=== PATIENT | female | born 1990 | race Caucasian/White ===

== ENCOUNTER 2016-10-03 08:17 | Emergency (ER) | payer SELFPAY ==
--- NOTE | 2016-10-03 08:38 | ED ---
Abdominal Pain HPI - General Chief Complaint: Abdominal Pain Stated Complaint: Pelvic pain Time Seen by Provider: 10/03/16 08:31 Source: patient, RN notes reviewed Mode of arrival: ambulatory Limitations: no limitations - History of Present Illness Initial Comments: 26-year-old female presents emergency Department chief complaint lower abdominal pain. Patient states that has been on and off for last week but states not improving. Patient states that she's had ovarian cysts in the past and feels somewhat. Patient states there is a chance . Though she has not taken a test. 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 Patient states that she had a menstrual cycle 2 weeks after though she has not had a menstrual cycle after. She states that she 's had some mild spotting over this last week and states when the bleeding is present she does have some cramping. Patient denies any vaginal discharge and denies any concerns for STDs. Patient states that she is 1 different partner with her . Patient denies nausea vomiting diarrhea constipation. She states all her pain is in the pelvic region. - Related Data Home Medications Medication Instructions Recorded Confirmed No Known Home Medications [No 10/03/16 10/03/16 Known Home Medications] Allergies Allergy/AdvReac Type Severity Reaction Status Date / Time codeine AdvReac Nausea Verified 10/03/16 08:25 Review of Systems ROS Statement: Those systems with pertinent positive or pertinent negative responses have been documented in the HPI. ROS Other: All systems not noted in ROS Statement are negative. Past Medical History Past Medical History: No Reported History History of Any Multi-Drug Resistant Organisms: None Reported Past Surgical History: Section Past Psychological History: No Psychological Hx Reported Smoking Status: Former smoker Past Alcohol Use History: None Reported Past Drug Use History: None Reported General Exam Limitations: no limitations General appearance: alert, in no apparent distress Respiratory exam: Present: normal lung sounds bilaterally. Absent: respiratory distress, wheezes, rales, rhonchi, stridor Cardiovascular Exam: Present: regular rate, normal rhythm, normal heart sounds. Absent: systolic murmur, diastolic murmur, rubs, gallop, clicks GI/Abdominal exam: Present: soft, tenderness (Mild/moderate suprapubic tenderness), normal bowel sounds. Absent: distended, guarding, rebound, rigid Back exam: Absent: CVA tenderness (R), CVA tenderness (L) Neurological exam: Present: alert Skin exam: Present: warm, dry, intact, normal color. Absent: rash Course Vital Signs 10/03/16 10/03/16 08:21 08:48 Temperature 98.2 F Pulse Rate 87 82 Respiratory 18 14 Rate Blood Pressure 128/73 118/63 O2 Sat by Pulse 97 96 Oximetry Medical Decision Making - Medical Decision Making 26-year-old female presented for pelvic pain. Patient has ovarian cyst noted on ultrasound. Patient's lab work, urinalysis within normal limits. Patient does not want a pelvic exam is time she states she has no concerns for PID. Patient will be discharged at this time with follow-up with [facility]. - Lab Data Result diagrams: 10/03/16 08:48 10/03/16 08:48 Lab Results 10/03/16 10/03/16 10/03/16 Range/Units 08:48 08:48 08:48 WBC 6.3 (3.8-10.6) k/uL RBC 4.79 (3.80-5.40) m/uL Hgb 13.9 (11.4-16.0) gm/dL Hct 41.8 (34.0-46.0) % MCV 87.4 (80.0-100.0) fL MCH 29.1 (25.0-35.0) pg MCHC 33.3 (31.0-37.0) g/dL RDW 13.6 (11.5-15.5) % Plt Count 224 (150-450) k/uL Neutrophils % 57 % Lymphocytes % 33 % Monocytes % 6 % Eosinophils % 2 % Basophils % 1 % Neutrophils # 3.6 (1.3-7.7) k/uL Lymphocytes # 2.1 (1.0-4.8) k/uL Monocytes # 0.4 (0-1.0) k/uL Eosinophils # 0.1 (0-0.7) k/uL Basophils # 0.0 (0-0.2) k/uL Sodium 141 (137-145) mmol/L Potassium 4.3 (3.5-5.1) mmol/L Chloride 107 (98-107) mmol/L Carbon Dioxide 21 L (22-30) mmol/L Anion Gap 13 mmol/L BUN 17 (7-17) mg/dL Creatinine 0.59 (0.52-1.04) mg/dL Est GFR (MDRD) Af Amer >60 (>60 ml/min/1.73 sqM) Est GFR (MDRD) Non-Af >60 (>60 ml/min/1.73 sqM) Glucose 81 (74-99) mg/dL Calcium 9.3 (8.4-10.2) mg/dL Total Bilirubin 0.6 (0.2-1.3) mg/dL AST 23 (14-36) U/L ALT 37 (9-52) U/L Alkaline Phosphatase 63 (38-126) U/L Total Protein 7.2 (6.3-8.2) g/dL Albumin 4.2 (3.5-5.0) g/dL Urine Color Urine Appearance (Clear) Urine pH (5.0-8.0) Ur Specific [place] (1.001-1.035) Urine Protein (Negative) Urine Glucose (UA) (Negative) Urine Ketones (Negative) Urine Blood (Negative) Urine Nitrate (Negative) Urine Bilirubin (Negative) Urine Urobilinogen (<2.0) mg/dL Ur Leukocyte Esterase (Negative) Urine HCG, Qual Not Detected (Not Detectd) 10/03/16 Range/Units 08:48 WBC (3.8-10.6) k/uL RBC (3.80-5.40) m/uL Hgb (11.4-16.0) gm/dL Hct (34.0-46.0) % MCV (80.0-100.0) fL MCH (25.0-35.0) pg MCHC (31.0-37.0) g/dL RDW (11.5-15.5) % Plt Count (150-450) k/uL Neutrophils % % Lymphocytes % % Monocytes % % Eosinophils % % Basophils % % Neutrophils # (1.3-7.7) k/uL Lymphocytes # (1.0-4.8) k/uL Monocytes # (0-1.0) k/uL Eosinophils # (0-0.7) k/uL Basophils # (0-0.2) k/uL Sodium (137-145) mmol/L Potassium (3.5-5.1) mmol/L Chloride (98-107) mmol/L Carbon Dioxide (22-30) mmol/L Anion Gap mmol/L BUN (7-17) mg/dL Creatinine (0.52-1.04) mg/dL Est GFR (MDRD) Af Amer (>60 ml/min/1.73 sqM) Est GFR (MDRD) Non-Af (>60 ml/min/1.73 sqM) Glucose (74-99) mg/dL Calcium (8.4-10.2) mg/dL Total Bilirubin (0.2-1.3) mg/dL AST (14-36) U/L ALT (9-52) U/L Alkaline Phosphatase (38-126) U/L Total Protein (6.3-8.2) g/dL Albumin (3.5-5.0) g/dL Urine Color Yellow Urine Appearance Clear (Clear) Urine pH 5.0 (5.0-8.0) Ur Specific [place] 1.015 (1.001-1.035) Urine Protein Negative (Negative) Urine Glucose (UA) Negative (Negative) Urine Ketones Negative (Negative) Urine Blood Negative (Negative) Urine Nitrate Negative (Negative) Urine Bilirubin Negative (Negative) Urine Urobilinogen <2.0 (<2.0) mg/dL Ur Leukocyte Esterase Negative (Negative) Urine HCG, Qual (Not Detectd) Disposition Clinical Impression: Ovarian cyst, Abdominal pain Disposition: HOME SELF-CARE Condition: Stable Instructions: Ovarian Cyst (ED) Additional Instructions: Please return to the Emergency Department if symptoms worsen or any other concerns. Referrals: rAmaan Chaney MD [Primary Care Provider] - 1-2 days Time of Disposition: 10:18
[2016-10-03 09:09] LABS: Basophils % (A) 1 %; CH 29.4; CHCM 33.7; Eosinophils # (A) 0.1 k/uL (0-0.7); Eosinophils % (A) 2 %; HCT 41.8 % (34.0-46.0); HDW 2.17; HGB 13.9 gm/dL (11.4-16.0); Luc # (Auto) 0.12; Luc % (Auto) 2; Lymphocytes # (A) 2.1 k/uL (1.0-4.8); Lymphocytes % (A) 33 %; MCH 29.1 pg (25.0-35.0); MCHC 33.3 g/dL (31.0-37.0); MCV 87.4 fL (80.0-100.0); Mean Platelet Volume 8.2; Monocytes # (A) 0.4 k/uL (0-1.0); Monocytes % (A) 6 %; Neutrophils # (A) 3.6 k/uL (1.3-7.7); Neutrophils % (A) 57 %; RBC 4.79 m/uL (3.80-5.40); RDW 13.6 % (11.5-15.5); WBC 6.3 k/uL (3.8-10.6); WBC (Perox) 6.49
[2016-10-03 09:17] LABS: ALT 37 U/L (9-52); AST 23 U/L (14-36); Alkaline Phosphatase 63 U/L (38-126); Anion Gap 13 mmol/L; Blood Urea Nitrogen 17 mg/dL (7-17); Calcium 9.3 mg/dL (8.4-10.2); Carbon Dioxide 21 mmol/L (22-30); Chloride 107 mmol/L (98-107); Glucose 81 mg/dL (74-99); Non-African American GFR(MDRD) >60 (>60 ml/min/1.73 sqM); Potassium 4.3 mmol/L (3.5-5.1); Sodium 141 mmol/L (137-145); Total Bilirubin 0.6 mg/dL (0.2-1.3); Total Protein 7.2 g/dL (6.3-8.2)
--- NOTE | 2016-10-03 09:35 | US ---
EXAMINATION TYPE: US transvag DATE OF EXAM: 10/03/2016 9:17 AM COMPARISON: NONE CLINICAL HISTORY: Pain X 1 WEEK, IRREGULAR BLEEDING SINCE LMP IN APRIL 2016. TECHNIQUE: TV Date of LMP: APR 2016 EXAM MEASUREMENTS: Uterus: 6.9 x 4.7 x 5.2cm Endometrial Stripe: 1.1cm Right Ovary: 4.8 x 4.9 x 3.7cm Left Ovary: 2.9 x 1.6 x 1.9cm TECHNOLOGIST IMPRESSION: 1. Uterus: Retroverted wnl 2. Endometrium: wnl 3. Right Ovary: 3.1cm simple cyst seen 4. Left Ovary: multiple follicles under 1cm Spectral, color and waveform doppler imaging shows good arterial and venous flow within the ovaries ; there is no evidence for ovarian torsion. 5. Bilateral Adnexa: mild free fluid around rt ovary 6. Posterior cul-de-sac: wnl Grayscale, color Doppler, spectral Doppler imaging performed of the ovaries IMPRESSION: No evident ovarian torsion. Small amount of free fluid present adjacent to the right ovar y. Endometrial stripe thickness is described, correlate for appropriate base of patient's follicular cycle. Right ovarian cyst, follow-up as indicated.
[2016-10-03 10:03] LABS: Appearance,Urine Clear (Clear); Bilirubin,Urine Negative (Negative); Glucose,Urine (UA) Negative (Negative); Ketones,Urine Negative (Negative); Leukocyte Esterase,Urine Negative (Negative); Nitrite,Urine Negative (Negative); Protein,Urine Negative (Negative); Specific Gravity,Urine 1.015 (1.001-1.035); UA Billing (MACRO vs. MICRO) CHEM; Urobilinogen,Urine <2.0 mg/dL (<2.0)
[2016-10-03 10:34] VITALS: BP 120/70; PULSE 78; RESP 16; TEMP 97.8
== END 2016-10-03 10:33 | disposition home or self-care (01) ==
LOC: EC 08:17
DX: N83.201 Unspecified ovarian cyst, right side (principal); Z88.5 Allergy status to narcotic agent; Z87.891 Personal history of nicotine dependence
CPT/HCPCS: 36415; 76830; 80053; 81003; 81025; 85025; 93975; 99284

== ENCOUNTER 2020-12-12 12:41 | Emergency (ER) | payer OTHER ==
[2020-12-12 14:07] LABS: Basophils % (A) 0 %; Eosinophils % (A) 1 %; HCT 40.9 % (34.0-46.0); HGB 14.1 gm/dL (11.4-16.0); Lymphocytes # (A) 1.1 k/uL (1.0-4.8); Lymphocytes % (A) 24 %; MCH 31.1 pg (25.0-35.0); MCHC 34.5 g/dL (31.0-37.0); Mean Platelet Volume 7.9; Monocytes # (A) 0.4 k/uL (0-1.0); Monocytes % (A) 8 %; Neutrophils % (A) 66 %; Platelet Count 171 k/uL (150-450); RBC 4.55 m/uL (3.80-5.40); RDW 11.9 % (11.5-15.5); WBC 4.5 k/uL (3.8-10.6)
[2020-12-12 14:18] LABS: ALT 16 U/L (4-34); AST 33 U/L (14-36); African American GFR (CKD) >90 (>60 ml/min/1.73 sqM); Albumin 4.2 g/dL (3.5-5.0); Alkaline Phosphatase 53 U/L (38-126); Anion Gap 9 mmol/L; Blood Urea Nitrogen 11 mg/dL (7-17); Calcium 8.8 mg/dL (8.4-10.2); Carbon Dioxide 26 mmol/L (22-30); Chloride 103 mmol/L (98-107); Glucose 95 mg/dL (74-99); Non-African American GFR(CKD) >90 (>60 ml/min/1.73 sqM); Potassium 4.4 mmol/L (3.5-5.1); Sodium 138 mmol/L (137-145); Total Bilirubin 0.4 mg/dL (0.2-1.3)
[2020-12-12] MEDS ORDERED: ACETAMINOPHEN TAB 500 MG TAB PO STA (14:58)
[2020-12-12] MEDS ORDERED: ONDANSETRON 4 MG/2 ML VIAL IVP STA (14:58)
[2020-12-12] MEDS ORDERED: SODIUM CHLORIDE 0.9% 1,000 ML IV STA (14:58)
[2020-12-12 15:16] VITALS: RESP 18
--- NOTE | 2020-12-12 15:32 | XR ---
EXAMINATION TYPE: XR chest 2V DATE OF EXAM: 12/12/2020 COMPARISON: NONE HISTORY: Chest pain TECHNIQUE: Frontal and lateral views of the chest are obtained. FINDINGS: There is no focal air space opacity. No evidence for pneumothorax. No pleural effusion. The cardiac silhouette size is within normal limits. The osseous structures are grossly intact. IMPRESSION: 1. No acute cardiopulmonary process.
--- NOTE | 2020-12-12 16:17 | ED ---
URI HPI - General Chief Complaint: Upper Respiratory Infection Stated Complaint: Dizziness,Vomiting, Fever,COVID + Time Seen by Provider: 12/12/20 14:54 Source: patient Mode of arrival: ambulatory Limitations: no limitations - History of Present Illness Initial Comments: Patient is a 30-year-old female presenting to the emergency department for complaints of fatigue, nausea and vomiting over the past week. Patient states she tested positive for Covid on 12/07/2020, symptoms began a few days before that. She states she has not had many respiratory symptoms but mostly the nausea vomiting and fatigue. Her appetite has been very low. She has been having fevers, she's been taking Tylenol and Motrin which has been helping. She denies any chest pain or shortness of breath, she admits to some occasional abdominal cramping but no specific area of abdominal pain. She denies being . She has no further complaints at this time. Upon arrival to the ER, her temperature is 99.8, pulse is 105, 96% on room air. - Related Data Previous Rx's Medication Instructions Recorded Ondansetron Odt [Zofran Odt] 4 mg PO Q8HR PRN #10 tab 12/12/20 Allergies Allergy/AdvReac Type Severity Reaction Status Date / Time codeine AdvReac Nausea Verified 12/12/20 13:44 Review of Systems ROS Statement: Those systems with pertinent positive or pertinent negative responses have been documented in the HPI. ROS Other: All systems not noted in ROS Statement are negative. Past Medical History Past Medical History: No Reported History History of Any Multi-Drug Resistant Organisms: None Reported Past Surgical History: Section Past Psychological History: No Psychological Hx Reported Smoking Status: Never smoker Past Alcohol Use History: None Reported Past Drug Use History: None Reported General Exam - General Exam Comments Initial Comments: GENERAL: Patient is well-developed and well-nourished. Patient is nontoxic and in no acute distress. HEAD: Atraumatic, normocephalic. EYES: Pupils equal round and reactive to light, extraocular movements intact, sclera anicteric, conjunctiva are normal. Eyelids were unremarkable. ENT: TMs normal, nares patent, oropharynx clear without exudates. Moist mucous membranes. NECK: Normal range of motion, supple without lymphadenopathy or JVD. LUNGS: Unlabored respirations. Breath sounds clear to auscultation bilaterally and equal. No wheezes rales or rhonchi. HEART: Regular rate and rhythm without murmurs, rubs or gallops. ABDOMEN: Soft, nontender, normoactive bowel sounds. No guarding, no rebound. No masses appreciated. : Deferred MUSCULOSKELETAL: Normal extremities with adequate strength and normal range of motion, no pitting or edema. No clubbing or cyanosis. NEUROLOGICAL: Patient is alert and oriented x 3. Motor and sensory are also intact. Cranial nerves II through XII grossly intact. Symmetrical smile. Normal speech, normal gait. PSYCH: Normal mood, normal affect. SKIN: Warm, Dry, normal turgor, no rashes or lesions noted. Limitations: no limitations Course Vital Signs 12/12/20 12/12/20 12/12/20 13:40 15:13 16:53 Temperature 99.8 F H 100.5 F H 99.0 F Pulse Rate 105 H 99 92 Respiratory 19 18 18 Rate Blood Pressure 116/82 113/73 115/73 O2 Sat by Pulse 96 97 97 Oximetry Medical Decision Making - Medical Decision Making Patient is a 30-year-old female here with nausea and vomiting, fatigue over the past week. She is Covid-positive, test was on 12/07/2020, symptoms began a few days before that. Her unremarkable, chest x-ray shows no acute process. Patient's vital signs are stable, she is febrile. Patient was given a liter of fluids, Zofran, as well as some Tylenol. She does report improvement in her symptoms. Patient does not meet qualifications for Covid antiviral infusion. I discussed with patient that we'll send her home with Zofran for any additional nausea or vomiting. Continue to increase her fluid intake. Return parameters were discussed with the patient she verbalized understanding. Case discussed with Dr. Fam. - Lab Data Result diagrams: 12/12/20 13:47 12/12/20 13:47 Lab Results 12/12/20 12/12/20 Range/Units 13:47 13:47 WBC 4.5 (3.8-10.6) k/uL RBC 4.55 (3.80-5.40) m/uL Hgb 14.1 (11.4-16.0) gm/dL Hct 40.9 (34.0-46.0) % MCV 90.0 (80.0-100.0) fL MCH 31.1 (25.0-35.0) pg MCHC 34.5 (31.0-37.0) g/dL RDW 11.9 (11.5-15.5) % Plt Count 171 (150-450) k/uL MPV 7.9 Neutrophils % 66 % Lymphocytes % 24 % Monocytes % 8 % Eosinophils % 1 % Basophils % 0 % Neutrophils # 3.0 (1.3-7.7) k/uL Lymphocytes # 1.1 (1.0-4.8) k/uL Monocytes # 0.4 (0-1.0) k/uL Eosinophils # 0.0 (0-0.7) k/uL Basophils # 0.0 (0-0.2) k/uL Sodium 138 (137-145) mmol/L Potassium 4.4 (3.5-5.1) mmol/L Chloride 103 (98-107) mmol/L Carbon Dioxide 26 (22-30) mmol/L Anion Gap 9 mmol/L BUN 11 (7-17) mg/dL Creatinine 0.67 (0.52-1.04) mg/dL Est GFR (CKD-EPI)AfAm >90 (>60 ml/min/1.73 sqM) Est GFR (CKD-EPI)NonAf >90 (>60 ml/min/1.73 sqM) Glucose 95 (74-99) mg/dL Calcium 8.8 (8.4-10.2) mg/dL Total Bilirubin 0.4 (0.2-1.3) mg/dL AST 33 (14-36) U/L ALT 16 (4-34) U/L Alkaline Phosphatase 53 (38-126) U/L Total Protein 7.0 (6.3-8.2) g/dL Albumin 4.2 (3.5-5.0) g/dL Disposition Clinical Impression: COVID-19, Nausea and vomiting Disposition: HOME SELF-CARE Condition: Stable Instructions (If sedation given, give patient instructions): Coronavirus Disease 2019 (COVID-19) Additional Instructions: Please return to the Emergency Department if symptoms worsen or any other concerns. May take Zofran for any additional nausea or vomiting. Increase your fluid intake. Increase your diet as tolerated. Prescriptions: Ondansetron Odt [Zofran Odt] 4 mg PO Q8HR PRN #10 tab PRN Reason: Nausea Is patient prescribed a controlled substance at d/c from ED?: No Referrals: None,Stated [Primary Care Provider] - 1-2 days Time of Disposition: 16:16
[2020-12-12 16:56] VITALS: BP 115/73; PULSE 92; TEMP 99
== END 2020-12-12 16:55 | disposition home or self-care (01) ==
LOC: EC 12:41
DX: U07.1 COVID-19 (principal)
CPT/HCPCS: 36415; 71046; 80053; 85025; 96361; 96374; 99284

== ENCOUNTER 2021-02-27 08:48 | Emergency (ER) | payer OTHER ==
[2021-02-27] MEDS ORDERED: SODIUM CHLORIDE 0.9% 500 ML 500 ML IV STA (09:09)
[2021-02-27 09:31] LABS: Basophils % (A) 1 %; Eosinophils # (A) 0.2 k/uL (0-0.7); Eosinophils % (A) 4 %; HCT 42.9 % (34.0-46.0); HGB 14.2 gm/dL (11.4-16.0); Lymphocytes % (A) 35 %; MCH 29.8 pg (25.0-35.0); MCV 90.2 fL (80.0-100.0); Mean Platelet Volume 7.7; Monocytes # (A) 0.3 k/uL (0-1.0); Monocytes % (A) 5 %; Neutrophils % (A) 54 %; Platelet Count 229 k/uL (150-450); RBC 4.75 m/uL (3.80-5.40); RDW 12.5 % (11.5-15.5); WBC 5.6 k/uL (3.8-10.6)
[2021-02-27 09:38] LABS: INR 0.9 (<1.2); Partial Thromboplastin Time 23.7 sec (22.0-30.0); Prothrombin Time 9.9 sec (9.0-12.0)
[2021-02-27 09:44] LABS: ALT 19 U/L (4-34); African American GFR (CKD) >90 (>60 ml/min/1.73 sqM); Albumin 4.6 g/dL (3.5-5.0); Anion Gap 7 mmol/L; Blood Urea Nitrogen 16 mg/dL (7-17); Calcium 9.3 mg/dL (8.4-10.2); Carbon Dioxide 27 mmol/L (22-30); Chloride 103 mmol/L (98-107); Glucose 101 mg/dL (74-99); Non-African American GFR(CKD) >90 (>60 ml/min/1.73 sqM); Sodium 137 mmol/L (137-145); Total Bilirubin 0.6 mg/dL (0.2-1.3); Total Protein 7.1 g/dL (6.3-8.2)
[2021-02-27 09:45] LABS: AST 33 U/L (14-36); Potassium 4.3 mmol/L (3.5-5.1)
[2021-02-27 09:46] LABS: Alkaline Phosphatase 58 U/L (38-126)
--- NOTE | 2021-02-27 10:17 | ED ---
Neuro HPI - General Chief Complaint: Neuro Symptoms/Deficit Stated Complaint: near syncope Time Seen by Provider: 02/27/21 08:56 Source: patient Mode of arrival: wheelchair Limitations: no limitations - History of Present Illness Is the patient presenting with stroke symptoms?: No Initial Comments: This a 30-year-old female presents emergency Department chief complaint of a headache. Patient states started hour or so prior arrival. She states she developed diffuse headache which has not been alleviated. She states that she had some symptoms of her right eye but cannot describe what she had a right eye denied blurred vision. Patient has no focal weakness states she just feels generalized weak, very anxious, Crying in the Room. She States That She's Having Trouble Saying What She Wants to Say Though She Didn't Complete a Full Sentence,Without Difficulties at Times. Patient has no coffee-ground presents with history, no chance patient denies chest pain shortness breath abdominal pain - Related Data Home Medications: Previous Rx's Medication Instructions Recorded Ondansetron Odt [Zofran Odt] 4 mg PO Q8HR PRN #10 tab 12/12/20 Allergies/Adverse Reactions: Allergies Allergy/AdvReac Type Severity Reaction Status Date / Time codeine AdvReac Nausea Verified 12/12/20 13:44 Review of Systems ROS Statement: Those systems with pertinent positive or pertinent negative responses have been documented in the HPI. ROS Other: All systems not noted in ROS Statement are negative. General Exam Limitations: no limitations General appearance: alert, in no apparent distress Head exam: Present: atraumatic, normocephalic, normal inspection Eye exam: Present: normal appearance, PERRL, EOMI. Absent: scleral icterus, conjunctival injection, periorbital swelling ENT exam: Present: normal exam, normal oropharynx, mucous membranes moist Neck exam: Present: normal inspection, full ROM. Absent: tenderness, meningismus, lymphadenopathy Respiratory exam: Present: normal lung sounds bilaterally. Absent: respiratory distress, wheezes, rales, rhonchi, stridor Cardiovascular Exam: Present: regular rate, normal rhythm, normal heart sounds. Absent: systolic murmur, diastolic murmur, rubs, gallop, clicks Neurological exam: Present: alert, oriented X3, CN II-XII intact, reflexes normal. Absent: motor sensory deficit Expanded Patient oriented to: Present: person, place, time Speech: Present: fluid speech Cranial nerves: EOM's Intact: Normal, Tongue Deviation: Normal, Nystagmus: Normal, Facial Sensation: Normal, Facial Palsy with Forehead Movement: Normal, Facial Palsy without Forehead Movement: Normal Cerebellar function: Finger to Nose: Normal, Heel to [place]: Normal Sensory exam: Upper Extremity Light Touch: Normal, UE 2 Point Discrimination: Normal, Lower Extremity Light Touch: Normal, LE 2 Point Discrimination: Normal Eye Response: (4) open spontaneously Motor Response: (6) obeys commands Verbal Response: (5) oriented Skin exam: Present: warm, dry, intact, normal color. Absent: rash Stroke MDM - Lab Data Result diagrams: 02/27/21 09:17 02/27/21 09:17 Lab Results 02/27/21 02/27/21 02/27/21 Range/Units 09:17 09:17 09:17 WBC 5.6 (3.8-10.6) k/uL RBC 4.75 (3.80-5.40) m/uL Hgb 14.2 (11.4-16.0) gm/dL Hct 42.9 (34.0-46.0) % MCV 90.2 (80.0-100.0) fL MCH 29.8 (25.0-35.0) pg MCHC 33.0 (31.0-37.0) g/dL RDW 12.5 (11.5-15.5) % Plt Count 229 (150-450) k/uL MPV 7.7 Neutrophils % 54 % Lymphocytes % 35 % Monocytes % 5 % Eosinophils % 4 % Basophils % 1 % Neutrophils # 3.0 (1.3-7.7) k/uL Lymphocytes # 2.0 (1.0-4.8) k/uL Monocytes # 0.3 (0-1.0) k/uL Eosinophils # 0.2 (0-0.7) k/uL Basophils # 0.0 (0-0.2) k/uL PT 9.9 (9.0-12.0) sec INR 0.9 (<1.2) APTT 23.7 (22.0-30.0) sec Sodium 137 (137-145) mmol/L Potassium 4.3 (3.5-5.1) mmol/L Chloride 103 (98-107) mmol/L Carbon Dioxide 27 (22-30) mmol/L Anion Gap 7 mmol/L BUN 16 (7-17) mg/dL Creatinine 0.65 (0.52-1.04) mg/dL Est GFR (CKD-EPI)AfAm >90 (>60 ml/min/1.73 sqM) Est GFR (CKD-EPI)NonAf >90 (>60 ml/min/1.73 sqM) Glucose 101 H (74-99) mg/dL Calcium 9.3 (8.4-10.2) mg/dL Total Bilirubin 0.6 (0.2-1.3) mg/dL AST 33 (14-36) U/L ALT 19 (4-34) U/L Alkaline Phosphatase 58 (38-126) U/L Total Protein 7.1 (6.3-8.2) g/dL Albumin 4.6 (3.5-5.0) g/dL Urine Color Urine Appearance (Clear) Urine pH (5.0-8.0) Ur Specific [place] (1.001-1.035) Urine Protein (Negative) Urine Glucose (UA) (Negative) Urine Ketones (Negative) Urine Blood (Negative) Urine Nitrite (Negative) Urine Bilirubin (Negative) Urine Urobilinogen (<2.0) mg/dL Ur Leukocyte Esterase (Negative) Urine HCG, Qual (Not Detectd) Urine Opiates Screen (NotDetected) Ur Oxycodone Screen (NotDetected) Urine Methadone Screen (NotDetected) Ur Propoxyphene Screen (NotDetected) Ur Barbiturates Screen (NotDetected) U Tricyclic Antidepress (NotDetected) Ur Phencyclidine Scrn (NotDetected) Ur Amphetamines Screen (NotDetected) U Methamphetamines Scrn (NotDetected) U Benzodiazepines Scrn (NotDetected) Urine Cocaine Screen (NotDetected) U Marijuana (THC) Screen (NotDetected) 02/27/21 02/27/21 Range/Units 10:12 10:12 WBC (3.8-10.6) k/uL RBC (3.80-5.40) m/uL Hgb (11.4-16.0) gm/dL Hct (34.0-46.0) % MCV (80.0-100.0) fL MCH (25.0-35.0) pg MCHC (31.0-37.0) g/dL RDW (11.5-15.5) % Plt Count (150-450) k/uL MPV Neutrophils % % Lymphocytes % % Monocytes % % Eosinophils % % Basophils % % Neutrophils # (1.3-7.7) k/uL Lymphocytes # (1.0-4.8) k/uL Monocytes # (0-1.0) k/uL Eosinophils # (0-0.7) k/uL Basophils # (0-0.2) k/uL PT (9.0-12.0) sec INR (<1.2) APTT (22.0-30.0) sec Sodium (137-145) mmol/L Potassium (3.5-5.1) mmol/L Chloride (98-107) mmol/L Carbon Dioxide (22-30) mmol/L Anion Gap mmol/L BUN (7-17) mg/dL Creatinine (0.52-1.04) mg/dL Est GFR (CKD-EPI)AfAm (>60 ml/min/1.73 sqM) Est GFR (CKD-EPI)NonAf (>60 ml/min/1.73 sqM) Glucose (74-99) mg/dL Calcium (8.4-10.2) mg/dL Total Bilirubin (0.2-1.3) mg/dL AST (14-36) U/L ALT (4-34) U/L Alkaline Phosphatase (38-126) U/L Total Protein (6.3-8.2) g/dL Albumin (3.5-5.0) g/dL Urine Color Colorless Urine Appearance Clear (Clear) Urine pH 6.0 (5.0-8.0) Ur Specific [place] 1.003 (1.001-1.035) Urine Protein Negative (Negative) Urine Glucose (UA) Negative (Negative) Urine Ketones Negative (Negative) Urine Blood Negative (Negative) Urine Nitrite Negative (Negative) Urine Bilirubin Negative (Negative) Urine Urobilinogen <2.0 (<2.0) mg/dL Ur Leukocyte Esterase Negative (Negative) Urine HCG, Qual Not Detected (Not Detectd) Urine Opiates Screen Not Detected (NotDetected) Ur Oxycodone Screen Not Detected (NotDetected) Urine Methadone Screen Not Detected (NotDetected) Ur Propoxyphene Screen Not Detected (NotDetected) Ur Barbiturates Screen Not Detected (NotDetected) U Tricyclic Antidepress Not Detected (NotDetected) Ur Phencyclidine Scrn Not Detected (NotDetected) Ur Amphetamines Screen Not Detected (NotDetected) U Methamphetamines Scrn Not Detected (NotDetected) U Benzodiazepines Scrn Not Detected (NotDetected) Urine Cocaine Screen Not Detected (NotDetected) U Marijuana (THC) Screen Not Detected (NotDetected) - Medical Decision Making 30-year-old presented for headache, right eye disturbance, not feeling well. Patient had complete workup to rule out CVA no acute findings patient given medications for migraine headache and which she states symptoms really resolved. 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 Past Medical History Past Medical History: No Reported History History of Any Multi-Drug Resistant Organisms: None Reported Past Surgical History: Section Past Psychological History: No Psychological Hx Reported Smoking Status: Never smoker Past Alcohol Use History: None Reported Past Drug Use History: None Reported Course Vital Signs 02/27/21 02/27/21 02/27/21 08:53 10:00 11:30 Temperature 97.8 F Pulse Rate 97 81 85 Respiratory 16 18 16 Rate Blood Pressure 153/77 117/67 122/70 O2 Sat by Pulse 100 100 98 Oximetry - Reevaluation(s) Reevaluation #1: 02/27/21 11:55 Updated on results patient is resting comfortably states that symptoms are resolving states she's has mild headache. Patient will provide medication for migraine headache. Disposition Clinical Impression: Migraine Disposition: HOME SELF-CARE Condition: Stable Instructions (If sedation given, give patient instructions): Migraine Headache (ED) Additional Instructions: Please return to the Emergency Department if symptoms worsen or any other concerns. Is patient prescribed a controlled substance at d/c from ED?: No Referrals: None,Stated [Primary Care Provider] - 1-2 days Time of Disposition: 12:17
[2021-02-27 10:31] LABS: Appearance,Urine Clear (Clear); Bilirubin,Urine Negative (Negative); Blood,Urine Negative (Negative); Color,Urine Colorless; Glucose,Urine (UA) Negative (Negative); Ketones,Urine Negative (Negative); Leukocyte Esterase,Urine Negative (Negative); Nitrite,Urine Negative (Negative); Protein,Urine Negative (Negative); Specific Gravity,Urine 1.003 (1.001-1.035); Urobilinogen,Urine <2.0 mg/dL (<2.0)
[2021-02-27] MEDS ORDERED: LORazepam 2 MG/ML INJ IV STA (10:34)
--- NOTE | 2021-02-27 10:46 | CT ---
EXAMINATION TYPE: CT angio COW [place] DATE OF EXAM: 02/27/2021 HISTORY: Headache COMPARISON: CT brain 02/27/2021 CT DLP: 1252 mGycm. Automated Exposure Control for Dose Reduction was Utilized. TECHNIQUE: CTA scan of the neck is performed with IV Contrast axial images are obtained, coronal and sagittal reformatted images are reviewed. Three-D reconstructed images are created on an independent workstation and reviewed. Source images are reviewed. Reconstructed images are included with the br ain images. FINDINGS: Cervical of [place]: Vertebral basilar system appears normal. Posterior cerebral vasculature is unrema rkable. Internal carotid arteries bifurcate normally into A1 and M1 segments. A2 segments are normal. The anterior communicating artery is patent. Left Posterior communicating artery is patent. Right po sterior communicating artery is patent. IMPRESSION: 1. Normal [place]
--- NOTE | 2021-02-27 11:06 | CT ---
EXAMINATION TYPE: CT brain wo con DATE OF EXAM: 02/27/2021 COMPARISON: None INDICATION: Neuro deficit, trouble speaking, trouble ambulating DLP: 1252 mGycm, Automated exposure control for dose reduction was used. CONTRAST: None CT of the brain is performed utilizing 3 mm thick sections through the posterior fossa and 3 mm thick sections through the remaining calvarium. Study is performed within 24 hours of arrival to the hosp [facility]. No abnormal hyperdensity is present to suggest an acute intracranial hemorrhage. No mass lesion is evident. No acute infarcts are evident. Ventricles and sulci are appropriate for the patient age. Paranasal sinuses and mastoid air cells within the [id number] are clear. IMPRESSIONS: 1. No acute intracranial process. If symptoms persist, MRI could be performed.
[2021-02-27 11:21] LABS: Amphetamine Screen,Urine Not Detected (NotDetected); Barbiturate Screen,Urine Not Detected (NotDetected); Benzodiazepines Screen,Urine Not Detected (NotDetected); Cocaine Screen,Urine Not Detected (NotDetected); Methadone Screen, Urine Not Detected (NotDetected); Opiate Screen,Urine Not Detected (NotDetected); Oxycodone Screen, Urine Not Detected (NotDetected); Phencyclidine Screen,Urine Not Detected (NotDetected); Tricyclic Antidepressant,Urine Not Detected (NotDetected); Urn Cannabinoid Scrn Not Detected (NotDetected)
[2021-02-27] MEDS ORDERED: METOCLOPRAMIDE 5 MG/ML 2 ML VIAL IVP STA (11:22)
[2021-02-27] MEDS ORDERED: KETOROLAC 15 MG/ML 1 ML VIAL IVP STA (11:22)
[2021-02-27 12:00] VITALS: RESP 16
[2021-02-27 12:29] VITALS: BP 120/55; PULSE 104; TEMP 97.9
== END 2021-02-27 12:29 | disposition home or self-care (01) ==
LOC: EC 08:48
DX: G43.909 Migraine, unspecified, not intractable, without status migrainosus (principal); R55 Syncope and collapse; Z88.5 Allergy status to narcotic agent
CPT/HCPCS: 36415; 70450; 70496; 80053; 80306; 81003; 81025; 85025; 85610; 85730; 93005; 96374; 96375; 99284

== ENCOUNTER 2023-07-22 16:39 | Emergency (ER) | payer OTHER ==
[2023-07-22 16:50] VITALS: BP 146/98; PULSE 92; RESP 18; TEMP 98.3
[2023-07-22] MEDS ORDERED: KETOROLAC 15 MG/ML 1 ML VIAL IM STA (17:24)
[2023-07-22] MEDS ORDERED: MECLIZINE 12.5 MG TAB PO STA (17:24)
--- NOTE | 2023-07-22 17:34 | ED ---
ENT HPI - General Chief complaint: ENT Stated complaint: Fever,earache Time Seen by Provider: 07/22/23 17:01 Source: patient Mode of arrival: ambulatory Limitations: no limitations - History of Present Illness Initial comments: 33-year-old female presenting with chief complaint of right ear pain. Patient states symptoms have been ongoing for 3 days. She states that she had bloody discharge from the ear 3 days ago. She admits to ringing in the ears and diminished hearing. She also admits to intermittent fever as well as body aches congestion. Admits to pressure in the sinuses. No sore throat or cough. No chest pain or difficulty breathing. Patient was seen at a walk in clinic recently and was started on amoxicillin 875mg, states that she has taken about 2 or 3 doses so far. - Related Data Previous Rx's Medication Instructions Recorded Ondansetron Odt [Zofran Odt] 4 mg PO Q8HR PRN #10 tab 12/12/20 Amoxicillin 875 mg PO Q12HR 5 Days #10 tablet 07/22/23 Meclizine [Antivert] 25 mg PO BID PRN #10 tab 07/22/23 guaiFENesin-DM 600/30MG [Mucinex 1 tab PO Q12HR PRN #20 tab 07/22/23 Dm] Allergies Allergy/AdvReac Type Severity Reaction Status Date / Time codeine AdvReac Nausea Verified 07/22/23 16:43 Review of Systems ROS Statement: Those systems with pertinent positive or pertinent negative responses have been documented in the HPI. ROS Other: All systems not noted in ROS Statement are negative. Past Medical History Past Medical History: No Reported History History of Any Multi-Drug Resistant Organisms: None Reported Past Surgical History: Section Past Psychological History: No Psychological Hx Reported Smoking Status: Never smoker Past Alcohol Use History: Occasional Past Drug Use History: None Reported General Exam Limitations: no limitations General appearance: alert, in no apparent distress Head exam: Present: atraumatic, normocephalic, normal inspection Eye exam: Present: normal appearance, EOMI Expanded TM/Canal exam: Erythema: Left TM, Right TM, Effusion: Left TM, Perforation: Right TM Mouth exam: Present: normal external inspection, tongue normal. Absent: drooling, trismus, muffled voice Neck exam: Present: normal inspection, full ROM Respiratory exam: Present: normal lung sounds bilaterally. Absent: respiratory distress, wheezes, rales, rhonchi, stridor Cardiovascular Exam: Present: regular rate, normal rhythm, normal heart sounds. Absent: systolic murmur, diastolic murmur, rubs, gallop, clicks Neurological exam: Present: alert, oriented X3 Psychiatric exam: Present: normal affect, normal mood Skin exam: Present: warm, dry, intact, normal color. Absent: rash Course Vital Signs 07/22/23 16:40 Temperature 98.3 F Pulse Rate 92 Respiratory 18 Rate Blood Pressure 146/98 O2 Sat by Pulse 97 Oximetry Medical Decision Making - Medical Decision Making Was pt. sent in by a medical professional or institution (, PA, FILLER SHREDDER, urgent care, hospital, or jail...) When possible be specific @ -No Did you speak to anyone other than the patient for history (EMS, parent, family, police, friend...)? What history was obtained from this source @ -No Did you review nursing and triage notes (agree or disagree)? Why? @ -I reviewed and agree with nursing and triage notes Were old charts reviewed (outside hosp., previous admission, EMS record, old EKG, old radiological studies, urgent care reports/EKG's, jail records)? Report findings @ -No old charts were reviewed Differential Diagnosis (chest pain, altered mental status, abdominal pain women, abdominal pain men, vaginal bleeding, weakness, fever, dyspnea, syncope, headache, dizziness, GI bleed, back pain, seizure, CVA, palpatations, mental health, musculoskeletal)? @ -Differential includes otitis externa, otitis media, tympanic membrane pe rforation, mastoiditis, this is not an all inclusive list EKG interpreted by me (3pts min.). @ -As above X-rays interpreted by me (1pt min.). @ -None done CT interpreted by me (1pt min.). @ -None done U/S interpreted by me (1pt. min.). @ -None done What testing was considered but not performed or refused? (CT, X-rays, U/S, labs)? Why? @ -None What meds were considered but not given or refused? Why? @ -None Did you discuss the management of the patient with other professionals (professionals i.e. , PA, FILLER SHREDDER, lab, RT, psych nurse, social media assistant, blending coordinator, teacher, disability liaison officer, case resolution specialist)? Give summary @ -No Was smoking cessation discussed for >3mins.? @ -No Was critical care preformed (if so, how long)? @ -No Were there social determinants of health that impacted care today? How? (Homelessness, low income, unemployed, alcoholism, drug addiction, transportation, low edu. Level, literacy, decrease access to med. care, fdc, rehab)? @ -No Was there de-escalation of care discussed even if they declined (Discuss DNR or withdrawal of care, Hospice)? DNR status @ -No What co-morbidities impacted this encounter? (DM, HTN, Smoking, COPD, CAD, Cancer, CVA, ARF, Chemo, Hep., AIDS, mental health diagnosis, sleep apnea, morbid obesity)? @ -None Was patient admitted / discharged? Hospital course, mention meds given and route, prescriptions, significant lab abnormalities, going to OR and other pertinent info. @ -33-year-old female presenting with chief complaint of right ear pain as well as decreased hearing, tinnitus, and bloody discharge from the ear a few days ago. She was recently started on amoxicillin 875 mg and has taken about 2 or 3 doses so far. History and physical examination are conducted. On exam there appears to be evidence of perforation to the right tympanic membrane. No mastoid erythema or swelling. Patient is instructed to continue with amoxicillin 875 and follow-up with ENT regarding tympanic membrane rupture. She is also advised started decongestant. Follow-up with PCP. Report back to ER with any new or worsening symptoms. Discussed return parameters and answered all questions. Patient conveyed verbal understanding and agreed to the plan. I discussed this case in detail with my attending Dr. Krueger Undiagnosed new problem with uncertain prognosis? @ -No Drug Therapy requiring intensive monitoring for toxicity (Heparin, Nitro, Insulin, Cardizem)? @ -No Were any procedures done? @ -No Diagnosis/symptom? @ -Otitis media, tympanic membrane rupture Acute, or Chronic, or Acute on Chronic? @ -Acute Uncomplicated (without systemic symptoms) or Complicated (systemic symptoms)? @ -Uncomplicated Side effects of treatment? @ -No Exacerbation, Progression, or Severe Exacerbation? @ -No Poses a threat to life or bodily function? How? (Chest pain, [place], [place], pneumonia, PE, COPD, DKA, ARF, appy, cholecystitis, CVA, Diverticulitis, Homicidal, Suicidal, threat to staff... and all critical care pts) @ -No Disposition Clinical Impression: Otitis media Disposition: HOME SELF-CARE Condition: Good Instructions (If sedation given, give patient instructions): Ruptured Eardrum (ED), Ear Infection (ED) Additional Instructions: Follow-up with PCP and ENT. Report back to ER with any new or worsening symptoms. Prescriptions: Amoxicillin 875 mg PO Q12HR 5 Days #10 tablet Meclizine [Antivert] 25 mg PO BID PRN #10 tab PRN Reason: Vertigo guaiFENesin-DM 600/30MG [Mucinex Dm] 1 tab PO Q12HR PRN #20 tab PRN Reason: Congestion Is patient prescribed a controlled substance at d/c from ED?: No Referrals: None,Stated [Primary Care Provider] - 1-2 days Cole Maza DO [Doctor of Osteopathic Medicine] - 1-2 days David Briceno MD [STAFF PHYSICIAN] - 1-2 days Jes Chavez MD [STAFF PHYSICIAN] - 1-2 days Time of Disposition: 17:32
== END 2023-07-22 18:14 | disposition home or self-care (01) ==
LOC: EC 16:39
DX: H66.91 Otitis media, unspecified, right ear (principal); H93.11 Tinnitus, right ear; Z88.5 Allergy status to narcotic agent
CPT/HCPCS: 99283; 96372; J1885

== ENCOUNTER 2023-12-14 15:09 | Observation (INO) | payer OTHER ==
[2023-12-14 15:53] LABS: Basophils % (A) 0 %; Eosinophils # (A) 0.1 k/uL (0-0.7); Eosinophils % (A) 2 %; HCT 39.4 % (34.0-46.0); HGB 13.5 gm/dL (11.4-16.0); Lymphocytes # (A) 2.5 k/uL (1.0-4.8); Lymphocytes % (A) 26 %; MCH 30.7 pg (25.0-35.0); MCHC 34.4 g/dL (31.0-37.0); MCV 89.2 fL (80.0-100.0); Mean Platelet Volume 8.2; Monocytes # (A) 0.5 k/uL (0-1.0); Monocytes % (A) 5 %; Neutrophils # (A) 6.1 k/uL (1.3-7.7); Neutrophils % (A) 65 %; Platelet Count 246 k/uL (150-450); RBC 4.41 m/uL (3.80-5.40); RDW 12.8 % (11.5-15.5); WBC 9.4 k/uL (3.8-10.6)
--- NOTE | 2023-12-14 16:01 | ED ---
General Adult HPI - General Chief complaint: Recheck/Abnormal Lab/Rx Stated complaint: Headache 15wks preg Time Seen by Provider: 12/14/23 15:11 Source: patient, RN/MD (Dr. Renteria who does recommend medical admission to [facility] with cardiology consult), RN notes reviewed Mode of arrival: ambulatory Limitations: no limitations - History of Present Illness Initial comments: Patient is a pleasant 33-year-old female presenting to the emergency department with concern for hypertension. Patient did see her ACID TANK LINER Dr. Renteria prior to arrival. Patient is 4 para 2-1-0-4. Patient is 15 weeks. Patient has been having headache intermittently for the past couple of days, mild at this time. Blood pressure at home was as high as 149/98. In the office it was 150/100 and repeat 150/92. Patient admits to having some mild dyspnea. Patient does have a history of hypertension following her delivery previously. Question if this was diagnosis preeclampsia or not. No pelvic pain or vaginal bleeding. Dr. Renteria did do ultrasound in the office which was reported normal and states that is not needed. - Related Data Home Medications Medication Instructions Recorded Confirmed No Known Home Medications 12/14/23 12/14/23 Allergies Allergy/AdvReac Type Severity Reaction Status Date / Time codeine AdvReac Nausea & Verified 12/14/23 19:12 Vomiting Review of Systems ROS Statement: Those systems with pertinent positive or pertinent negative responses have been documented in the HPI. ROS Other: All systems not noted in ROS Statement are negative. Constitutional: Denies: fever Eyes: Denies: eye pain ENT: Denies: ear pain Respiratory: Reports: as per HPI Cardiovascular: Denies: chest pain Endocrine: Denies: fatigue Gastrointestinal: Denies: abdominal pain, nausea, vomiting Genitourinary: Denies: dysuria, hematuria Past Medical History Past Medical History: No Reported History History of Any Multi-Drug Resistant Organisms: None Reported Past Surgical History: Section Past Psychological History: No Psychological Hx Reported Smoking Status: Never smoker Past Alcohol Use History: Occasional Past Drug Use History: None Reported General Exam Limitations: no limitations General appearance: alert, in no apparent distress Head exam: Present: normocephalic Eye exam: Present: normal appearance, PERRL ENT exam: Present: normal oropharynx Neck exam: Present: normal inspection Respiratory exam: Present: normal lung sounds bilaterally Cardiovascular Exam: Present: regular rate, normal rhythm GI/Abdominal exam: Present: soft. Absent: tenderness Extremities exam: Present: normal inspection. Absent: pedal edema, calf tendern ess Neurological exam: Present: alert Psychiatric exam: Present: normal affect, normal mood Skin exam: Present: normal color Course Vital Signs 12/14/23 12/14/23 12/14/23 15:11 16:16 18:00 Temperature 98.2 F Pulse Rate 101 H 76 76 Pulse Rate [ It Consulting Manager ] Respiratory 18 16 16 Rate Blood Pressure 138/92 128/91 119/72 O2 Sat by Pulse 99 98 Oximetry 12/14/23 18:27 Temperature Pulse Rate Pulse Rate [ 68 It Consulting Manager ] Respiratory Rate Blood Pressure O2 Sat by Pulse Oximetry Medical Decision Making - Medical Decision Making Was pt. sent in by a medical professional or institution (, PA, DIPLOMA DENTAL ASSISTANT, urgent care, hospital, or intermediate...) When possible be specific @ -Patient was sent in by Dr. Renteria's office Did you speak to anyone other than the patient for history (EMS, parent, family, police, friend...)? What history was obtained from this source @ -I did speak with Dr. Renteria who did provide me with patient's history and blood pressure in the office Did you review nursing and triage notes (agree or disagree)? Why? @ -I reviewed and agree with nursing and triage notes Were old charts reviewed (outside hosp., previous admission, EMS record, old EKG, old radiological studies, urgent care reports/EKG's, intermediate records)? Report findings @ -No old charts were reviewed Differential Diagnosis (chest pain, altered mental status, abdominal pain women, abdominal pain men, vaginal bleeding, weakness, fever, dyspnea, syncope, headache, dizziness, GI bleed, back pain, seizure, CVA, palpatations, mental health, musculoskeletal)? @ -Differential Abdominal Pain Women: Appendicitis, Cholecystitis, diverticulosis, ischemic bowel, pancreatitis, hepatitis, UTI, gastroenteritis, AAA, incarcerated hernia, bowel obstruction, constipation, inflammatory bowel, hepatitis, peptic ulcer disease, splenic infarction, perforated viscus, vulvitis, ovarian torsion, PID, kidney stone, placenta abruption, this is not meant to be an all-inclusive list EKG interpreted by me (3pts min.). @ -As above X-rays interpreted by me (1pt min.). @ -None done CT interpreted by me (1pt min.). @ -None done U/S interpreted by me (1pt. min.). @ -None done What testing was considered but not performed or refused? (CT, X-rays, U/S, la bs)? Why? @ -Considered pelvic ultrasound however 1 was done in the office by Dr. Renteria and reported as normal What meds were considered but not given or refused? Why? @ -None Did you discuss the management of the patient with other professionals (professionals i.e. , PA, DIPLOMA DENTAL ASSISTANT, lab, RT, psych nurse, professor of social work, toll repairer central office, teacher, chief financial officer, casework specialist)? Give summary @ -Case was discussed with Dr. Renteria. Case also discussed with Dr. Osuna who Dr. Renteria did request. She will admit Was smoking cessation discussed for >3mins.? @ -No Was critical care preformed (if so, how long)? @ -No Were there social determinants of health that impacted care today? How? (Homelessness, low income, unemployed, alcoholism, drug addiction, transportation, low edu. Level, literacy, decrease access to med. care, care home, rehab)? @ -No Was there de-escalation of care discussed even if they declined (Discuss DNR or withdrawal of care, Hospice)? DNR status @ -No What co-morbidities impacted this encounter? (DM, HTN, Smoking, COPD, CAD, Cancer, CVA, ARF, Chemo, Hep., AIDS, mental health diagnosis, sleep apnea, morbid obesity)? @ -15 weeks gravid Was patient admitted / discharged? Hospital course, mention meds given and route, prescriptions, significant lab abnormalities, going to OR and other pertinent info. @ -Patient reevaluated and updated. Blood pressure has improved without medications. Patient will be held for observation with cardiac consult and echo ordered. Admission orders written Undiagnosed new problem with uncertain prognosis? @ -No Drug Therapy requiring intensive monitoring for toxicity (Heparin, Nitro, Insulin, Cardizem)? @ -No Were any procedures done? @ -No Diagnosis/symptom? @ -Hypertension in Acute, or Chronic, or Acute on Chronic? @ -Acute Uncomplicated (without systemic symptoms) or Complicated (systemic symptoms)? @ -Default Side effects of treatment? @ -No Exacerbation, Progression, or Severe Exacerbation? @ -No Poses a threat to life or bodily function? How? (Chest pain, [place], [place], pneumonia, PE, COPD, DKA, ARF, appy, cholecystitis, CVA, Diverticulitis, Homicidal, Suicidal, threat to staff... and all critical care pts) @ -No - Lab Data Result diagrams: 12/14/23 15:46 12/14/23 15:46 Lab Results 12/14/23 12/14/23 12/14/23 Range/Units 15:46 15:46 15:46 WBC 9.4 (3.8-10.6) k/uL RBC 4.41 (3.80-5.40) m/uL Hgb 13.5 (11.4-16.0) gm/dL Hct 39.4 (34.0-46.0) % MCV 89.2 (80.0-100.0) fL MCH 30.7 (25.0-35.0) pg MCHC 34.4 (31.0-37.0) g/dL RDW 12.8 (11.5-15.5) % Plt Count 246 (150-450) k/uL MPV 8.2 Neutrophils % 65 % Lymphocytes % 26 % Monocytes % 5 % Eosinophils % 2 % Basophils % 0 % Neutrophils # 6.1 (1.3-7.7) k/uL Lymphocytes # 2.5 (1.0-4.8) k/uL Monocytes # 0.5 (0-1.0) k/uL Eosinophils # 0.1 (0-0.7) k/uL Basophils # 0.0 (0-0.2) k/uL Sodium 135 L (137-145) mmol/L Potassium 4.5 (3.5-5.1) mmol/L Chloride 108 H (98-107) mmol/L Carbon Dioxide 18 L (22-30) mmol/L Anion Gap 9 mmol/L BUN 11 (7-17) mg/dL Creatinine 0.43 L (0.52-1.04) mg/dL Est GFR (CKD-EPI)AfAm >90 (>60 ml/min/1.73 sqM) Est GFR (CKD-EPI)NonAf >90 (>60 ml/min/1.73 sqM) Glucose 92 (74-99) mg/dL Uric Acid 4.2 (3.7-7.4) mg/dL Calcium 9.4 (8.4-10.2) mg/dL Magnesium 1.9 (1.6-2.3) mg/dL Total Bilirubin 0.5 (0.2-1.3) mg/dL AST 30 (14-36) U/L ALT 16 (4-34) U/L Alkaline Phosphatase 66 (38-126) U/L Lactate Dehydrogenase 322 H (120-246) U/L Troponin I 0.018 (0.000-0.034) ng/mL Total Protein 7.3 (6.3-8.2) g/dL Albumin 4.1 (3.5-5.0) g/dL Urine Color Urine Appearance (Clear) Urine pH (5.0-8.0) Ur Specific [place] (1.001-1.035) Urine Protein (Negative) Urine Glucose (UA) (Negative) Urine Ketones (Negative) Urine Blood (Negative) Urine Nitrite (Negative) Urine Bilirubin (Negative) Urine Urobilinogen (<2.0) mg/dL Ur Leukocyte Esterase (Negative) 12/14/23 Range/Units 17:12 WBC (3.8-10.6) k/uL RBC (3.80-5.40) m/uL Hgb (11.4-16.0) gm/dL Hct (34.0-46.0) % MCV (80.0-100.0) fL MCH (25.0-35.0) pg MCHC (31.0-37.0) g/dL RDW (11.5-15.5) % Plt Count (150-450) k/uL MPV Neutrophils % % Lymphocytes % % Monocytes % % Eosinophils % % Basophils % % Neutrophils # (1.3-7.7) k/uL Lymphocytes # (1.0-4.8) k/uL Monocytes # (0-1.0) k/uL Eosinophils # (0-0.7) k/uL Basophils # (0-0.2) k/uL Sodium (137-145) mmol/L Potassium (3.5-5.1) mmol/L Chloride (98-107) mmol/L Carbon Dioxide (22-30) mmol/L Anion Gap mmol/L BUN (7-17) mg/dL Creatinine (0.52-1.04) mg/dL Est GFR (CKD-EPI)AfAm (>60 ml/min/1.73 sqM) Est GFR (CKD-EPI)NonAf (>60 ml/min/1.73 sqM) Glucose (74-99) mg/dL Uric Acid (3.7-7.4) mg/dL Calcium (8.4-10.2) mg/dL Magnesium (1.6-2.3) mg/dL Total Bilirubin (0.2-1.3) mg/dL AST (14-36) U/L ALT (4-34) U/L Alkaline Phosphatase (38-126) U/L Lactate Dehydrogenase (120-246) U/L Troponin I (0.000-0.034) ng/mL Total Protein (6.3-8.2) g/dL Albumin (3.5-5.0) g/dL Urine Color Colorless Urine Appearance Clear (Clear) Urine pH 6.0 (5.0-8.0) Ur Specific [place] 1.006 (1.001-1.035) Urine Protein Negative (Negative) Urine Glucose (UA) Negative (Negative) Urine Ketones Negative (Negative) Urine Blood Negative (Negative) Urine Nitrite Negative (Negative) Urine Bilirubin Negative (Negative) Urine Urobilinogen <2.0 (<2.0) mg/dL Ur Leukocyte Esterase Negative (Negative) Disposition Clinical Impression: Hypertension affecting Disposition: ADMITTED IP TO THIS [facility] Is patient prescribed a controlled substance at d/c from ED?: No Referrals: None,Stated [Primary Care Provider] - 1-2 days Time of Disposition: 19:14
[2023-12-14 16:15] LABS: ALT 16 U/L (4-34); African American GFR (CKD) >90 (>60 ml/min/1.73 sqM); Anion Gap 9 mmol/L; Blood Urea Nitrogen 11 mg/dL (7-17); Calcium 9.4 mg/dL (8.4-10.2); Carbon Dioxide 18 mmol/L (22-30); Chloride 108 mmol/L (98-107); Glucose 92 mg/dL (74-99); Non-African American GFR(CKD) >90 (>60 ml/min/1.73 sqM); Sodium 135 mmol/L (137-145); Total Bilirubin 0.5 mg/dL (0.2-1.3); Uric Acid 4.2 mg/dL (3.7-7.4)
[2023-12-14 16:17] LABS: AST 30 U/L (14-36); Potassium 4.5 mmol/L (3.5-5.1)
[2023-12-14 16:18] LABS: Albumin 4.1 g/dL (3.5-5.0); Alkaline Phosphatase 66 U/L (38-126); LDH 322 U/L (120-246); Magnesium 1.9 mg/dL (1.6-2.3); Total Protein 7.3 g/dL (6.3-8.2)
[2023-12-14 17:25] LABS: Appearance,Urine Clear (Clear); Bilirubin,Urine Negative (Negative); Blood,Urine Negative (Negative); Color,Urine Colorless; Glucose,Urine (UA) Negative (Negative); Ketones,Urine Negative (Negative); Leukocyte Esterase,Urine Negative (Negative); Nitrite,Urine Negative (Negative); Protein,Urine Negative (Negative); Specific Gravity,Urine 1.006 (1.001-1.035); Urobilinogen,Urine <2.0 mg/dL (<2.0)
[2023-12-14] MEDS ORDERED: NALOXONE 0.4 MG/ML 1 ML VIAL IV PRN ×2 (19:14→21:17)
--- NOTE | 2023-12-14 21:26 | P.HPIM ---
History of Present Illness H&P Date: 12/14/23 Chief Complaint: elevated BP 33-year-old female presenting to the emergency department with concern for hypertension. Patient did see her LEARNING DEVELOPMENT SPECIALIST Dr. Renteria prior to arrival. THis is her 5th , she is currently at 15 weeks. Patient has been having headache intermittently for the past couple of days, mild at this time. Blood pressure at home was as high as 149/103. In the office it was 159/93. Patient admits to having some mild dyspnea, feeling of ''parish to head'', dizziness with standing, palpitations, hearing her heartbeat. No chest pain, no visual sympt oms. No fevers, no stress lately. Has daily nausea and vomiting from her , no change in that. Patient does have a history of hypertension following one of her deliveries previously. No official diagnosis of preeclampsia. No pelvic pain or vaginal bleeding. Dr. Renteria did do ultrasound in the office which was reported normal and states that is not needed. Review of Systems complete review of system performed, pertinent positives per HPI, otherwise negative Past Medical History Past Medical History: No Reported History History of Any Multi-Drug Resistant Organisms: None Reported Past Surgical History: Section Past Psychological History: No Psychological Hx Reported Smoking Status: Never smoker Past Alcohol Use History: Occasional Past Drug Use History: None Reported Medications and Allergies Home Medications Medication Instructions Recorded Confirmed Type No Known Home Medications 12/14/23 12/14/23 History Allergies Allergy/AdvReac Type Severity Reaction Status Date / Time codeine AdvReac Nausea & Verified 12/14/23 19:12 Vomiting Physical Exam Vitals: Vital Signs Temp Pulse Pulse Resp BP Pulse Ox 12/14/23 18:27 68 12/14/23 18:00 76 16 119/72 98 12/14/23 16:16 76 16 128/91 12/14/23 15:11 98.2 F 101 H 18 138/92 99 Intake and Output 12/14/23 12/14/23 12/14/23 06:59 14:59 22:59 Other: Weight 83.915 kg Constitutional: No acute distress, conversant, pleasant Eyes:Anicteric sclerae, moist conjunctiva, no lid-lag, PERRLA, ENMT: Oropharynx clear, no erythema, exudates Neck: Supple, FROM, no masses, or JVD, No carotid bruits, No thyromegaly Lungs: Clear to auscultation, Clear to percussion, Normal respiratory effort, no accessory muscle use Cardiovascular: Heart regular in rate and rhythm, No murmurs, gallops, or rubs, No peripheral edema Abdominal: Soft, Nontender, no guarding, rebound or rigidity, Normoactive bowel sounds, No hepatomegaly, No splenomegaly, No palpable mass Skin: Normal temperature, tone, texture, turgor, no induration, No subcutaneous nodules, No rash, lesions, No ulcers Extremities: No digital cyanosis, No clubbing, Pedal pulses intact and symmetrical, Radial pulses intact and symmetrical, No calf tenderness Psychiatric: Alert and oriented to person, place and time, appropriate affect, intact judgement Neuro: Muscles Strength 5/5 in all 4 extremities, Sensation to light touch grossly present throughout, Cranial nerves II-XII grossly intact, no focal sensory deficits Results CBC & Chem 7: 12/14/23 15:46 12/14/23 15:46 Labs: Abnormal Lab Results - Last 24 Hours (Table) 12/14/23 Range/Units 15:46 Sodium 135 L (137-145) mmol/L Chloride 108 H (98-107) mmol/L Carbon Dioxide 18 L (22-30) mmol/L Creatinine 0.43 L (0.52-1.04) mg/dL Lactate Dehydrogenase 322 H (120-246) U/L Assessment and Plan Plan: hypertension Rule out gestational hypertension versus preeclampsia Consult cardiology and OCCUPATIONAL HEALTH RN Use labetalol when necessary for elevated blood pressure elevated LDH Unclear significance Repeat in am
[2023-12-14] MEDS: ACETAMINOPHEN TAB 325 MG TAB PO PRN (22:53)
[2023-12-15 03:17] VITALS: RESP 16
[2023-12-15] MEDS: LABETALOL 100 MG TAB PO SCH (09:22)
--- NOTE | 2023-12-15 10:15 | CA ---
Transthoracic Echo Report Name: Perlita Dawson Age: 33 Gender: F : 1990 Exam Date: 12/15/2023 08:19 Exam Location: [place] [facility] Ht (in): 62 Wt (lb): 185 Ordering Physician: Raheem Virgen DO Attending/Referring Phys: Store Sales Consultant Shea Ortega RDCS Procedure CPT: Indications: HTN Cardiac Hx: 15 weeks pragnet Technical Quality: Good Contrast 1: Total Dose (mL): Contrast 2: Total Dose (mL): MEASUREMENTS (Male / Female) Normal Values 2D ECHO LV Diastolic Diameter PLAX 4.0 cm 4.2 - 5.9 / 3.9 - 5.3 cm LV Systolic Diameter PLAX 2.9 cm IVS Diastolic Thickness 1.0 cm 0.6 - 1.0 / 0.6 - 0.9 cm LVPW Diastolic Thickness 1.0 cm 0.6 - 1.0 / 0.6 - 0.9 cm LV Relative Wall Thickness 0.5 RV Internal Dim ED PLAX 2.9 cm LA Systolic Diameter LX 3.0 cm 3.0 - 4.0 / 2.7 - 3.8 cm LV Diastolic Volume MOD 4C 110.6 cm??? LV Systolic Volume MOD 4C 55.0 cm??? LV Ejection Fraction MOD 4C 50.2 % LV Cardiac Index MOD 4C 2388.8 cm???/min???m??? LV Diastolic Length 4C 8.0 cm LV Systolic Length 4C 6.2 cm LV Diastolic Volume MOD 2C 120.5 cm??? LV Systolic Volume MOD 2C 53.8 cm??? LV Ejection Fraction MOD 2C 55.3 % LV Cardiac Index MOD 2C 2869.0 cm???/min???m??? LV Diastolic Length 2C 8.4 cm LV Systolic Length 2C 6.8 cm LA Volume 39.9 cm??? 18 - 58 / 22 - 52 cm??? LA Volume Index 20.4 cm???/m??? 16 - 28 cm???/m??? M-MODE Aortic Root Diameter MM 3.0 cm MV E Point Septal Separation 0.6 cm DOPPLER AV Peak Velocity 120.6 cm/s AV Peak Gradient 5.8 mmHg MV Area PHT 3.5 cm??? Mitral E Point Velocity 72.9 cm/s Mitral A Point Velocity 64.8 cm/s Mitral E to A Ratio 1.1 MV Deceleration Time 215.5 ms TR Peak Velocity 184.2 cm/s TR Peak Gradient 13.6 mmHg Right Ventricular Systolic Press 18.3 mmHg FINDINGS Left Ventricle Left ventricular ejection fraction is estimated at 55-60 %. Left ventricular cavity size normal. Left ventricular cavity size normal. Right Ventricle Normal right ventricular size. Right ventricular systolic pressure within normal limits. Right Atrium Normal right atrial size. Left Atrium Normal left atrial size. Mitral Valve Structurally normal mitral valve. No mitral stenosis, regurgitation or prolapse. Slightly redundant anterior mitral leaflet Aortic Valve Trileaflet aortic valve. No aortic valve stenosis or regurgitation. Tricuspid Valve Structurally normal tricuspid valve. [id number] tricuspid regurgitation. Pulmonic Valve Structurally normal pulmonic valve. No pulmonic regurgitation. Pericardium No pericardial effusion. Aorta Normal size aortic root and proximal ascending aorta. CONCLUSIONS Normal LV size and systolic function. Mild mitral and [id number] tricuspid regurgitation no significant pulmonary hypertension no pericardial effusion Previewed by: Dr. Jeancarlos Ribera MD (Electronically Signed) Final Date: 15 December 2023 10:14
[2023-12-15 10:47] LABS: Basophils # (A) 0.03 X 10*3/uL (0.00-0.10); Basophils % (A) 0.4 %; Eosinophils # (A) 0.17 X 10*3/uL (0.04-0.35); Eosinophils % (A) 2.2 %; HCT 36.7 % (37.2-46.3); Lymphocytes # (A) 2.69 X 10*3/uL (0.90-5.00); Lymphocytes % (A) 34.5 %; MCH 29.6 pg (27.0-32.0); MCHC 32.7 g/dL (32.0-37.0); MCV 90.6 FL (80.0-97.0); Mean Platelet Volume 10.3 FL (9.5-12.2); Monocytes # (A) 0.64 X 10*3/uL (0.20-1.00); Monocytes % (A) 8.2 %; NRBC Per 100 WBC 0 X 10*3/uL (0.00-0.01); Neutrophils # (A) 4.25 X 10*3/uL (1.80-7.70); Neutrophils % (A) 54.4 %; Platelet Count 222 X 10*3/uL (140-440); RBC 4.05 X 10*6/uL (4.10-5.20); RDW 12.5 % (11.5-14.5)
[2023-12-15 11:12] LABS: ALT 12 U/L (8-44); AST 18 U/L (13-35); Albumin 3.6 g/dL (3.8-4.9); Alkaline Phosphatase 60 U/L (41-126); Blood Urea Nitrogen 8.3 mg/dL (9.0-27.0); Calcium 8.9 mg/dL (8.7-10.3); Carbon Dioxide 20.8 mmol/L (21.6-31.8); Chloride 105 mmol/L (96-109); Globulin 2.4 g/dL (1.6-3.3); Glucose 72 mg/dL (70-110); Magnesium 2.1 mg/dL (1.5-2.4); Phosphorus 4.3 mg/dL (2.4-5.1); Potassium 4.1 mmol/L (3.5-5.5); Sodium 136 mmol/L (135-145); Total Bilirubin <0.2 mg/dL (0.3-1.2)
--- NOTE | 2023-12-15 12:56 | P.OBCN ---
History of Present Illness Consult date: 12/15/23 Reason for consult: other ( with new onset hypertension) History of present illness: The patient is a 33-year-old 4 para 2-0-1-2 who presented to the office yesterday at 15 weeks of by good dating parameters with a complaint of significantly increasing headaches with occasional shortness of breath. Blood pressures in the office were noted to be 150-160/90 8-100/2 occasions. Her previous pregnancies were managed at [facility] and she reportedly had, following her last and episode following delivery that took her to the emergency room at [facility] where she was found with fairly sign ificant high blood pressure and started on "medication." She implied that there may have been some sort of swelling in or around her heart. I have been unable to retrieve records to this point that document the nature of this visit. Given the acuity of the findings and the elevated blood pressure and concern for possible history of cardiomyopathy, I had the patient present to the emergency room and discussed the case with the emergency room physician and agreed that she likely should be admitted for control of hypertension as well as acute echocardiogram to check on cardiac function. The patient has reportedly been given at least 1 dose of labetalol 100 mg orally today. Echocardiogram has been done and has returned with normal function and findings, ejection fraction of 55 to 60%. There are no concerns at this time and heart tones were dopplered in the office yesterday. She has a follow-up appointment in my office in 2 weeks. She denies any ongoing concerns at this time aside from continued nausea and vomiting which has been present throughout the p regnancy. Obstetrical history: 4 para 2-0-1-2 with 2 previous sections. Current statistics are listed in history of present illness. Gynecologic history: Unremarkable with no history of any infections to include STDs. Past Medical History Past Medical History: No Reported History History of Any Multi-Drug Resistant Organisms: None Reported Past Surgical History: Section Past Anesthesia/Blood Transfusion Reactions: No Reported Reaction Past Psychological History: No Psychological Hx Reported Smoking Status: Never smoker Past Alcohol Use History: Occasional Past Drug Use History: None Reported Medications and Allergies Home Medications Medication Instructions Recorded Confirmed Type No Known Home Medications 12/14/23 12/14/23 History Allergies Allergy/AdvReac Type Severity Reaction Status Date / Time codeine AdvReac Nausea & Verified 12/14/23 19:12 Vomiting Exam Vital Signs Temp Pulse Pulse Pulse Resp BP BP 12/15/23 08:00 68 78 16 12/15/23 07:00 98.6 F 78 16 115/71 12/15/23 02:00 98.4 F 76 16 115/71 12/14/23 22:18 98.7 F 104 H 18 133/84 12/14/23 21:32 95 18 138/72 12/14/23 18:27 68 12/14/23 18:00 76 16 119/72 12/14/23 16:16 76 16 128/91 12/14/23 15:11 98.2 F 101 H 18 138/92 Pulse Ox 12/15/23 08:00 12/15/23 07:00 99 12/15/23 02:00 96 12/14/23 22:18 99 12/14/23 21:32 98 12/14/23 18:27 12/14/23 18:00 98 12/14/23 16:16 12/14/23 15:11 99 Intake and Output 12/14/23 12/15/23 12/15/23 22:59 06:59 14:59 Intake Total 118 Balance 118 Intake: Oral 118 Other: Voiding Method Toilet # Voids 2 Weight 83.915 kg In general, this is a well-developed, well-nourished white female no acute distress. Her heart has a regular rhythm and rate without murmur. Her lungs are clear to auscultation bilaterally in all kramer. Her abdomen is nondistended, has normal active bowel sounds, soft, nontender, with a fundal height of approximately 15 weeks size consistent with her current gestation. Her extremities are without any cyanosis, clubbing, or edema and are nontender to palpation bilaterally. Pelvic examination is deferred. Results Result Diagrams: 12/15/23 05:41 12/15/23 05:41 Abnormal Lab Results - Last 24 Hours (Table) 12/14/23 12/15/23 12/15/23 Range/Units 15:46 05:41 05:41 RBC 4.05 L (4.10-5.20) X 10*6/uL Hct 36.7 L (37.2-46.3) % Sodium 135 L (137-145) mmol/L Chloride 108 H (98-107) mmol/L Carbon Dioxide 18 L 20.8 L (22-30) mmol/L BUN 8.3 L (9.0-27.0) mg/dL Creatinine 0.43 L 0.5 L (0.52-1.04) mg/dL Total Bilirubin <0.2 L (0.3-1.2) mg/dL Lactate Dehydrogenase 322 H (120-246) U/L Total Protein 6.0 L (6.2-8.2) g/dL Albumin 3.6 L (3.8-4.9) g/dL Albumin/Globulin Ratio 1.50 L (1.60-3.17) Ratio Assessment and Plan (1) Hypertension affecting Current Visit: Yes Status: Acute Code(s): O16.9 - UNSPECIFIED MATERNAL HYPERTENSION, UNSPECIFIED TRIMESTER SNOMED Code(s): 04981829026918 Plan: The patient was admitted to internal medicine to begin to manage her hypertensive concerns. I believe she has only been started on labetalol 100 mg daily but I will increase that to twice daily. Echocardiogram has been found normal and reassuring. Her lab work is unremarkable. I would recommend that she be discharged home to follow-up in my office in approximately 2 weeks time. I recommended that she follow her blood pressures at home if possible and call for any increasing symptoms.
[2023-12-15 13:51] VITALS: BP 119/79; PULSE 82; TEMP 98.4
--- NOTE | 2023-12-15 14:30 | P.DS ---
Providers Date of admission: 12/14/23 19:16 Expected date of discharge: 12/15/23 Attending physician: Meli Balderas DO Consults: 12/14/23 19:14 Consult Physician Routine Consulting Provider: Artis Joseph Consult Reason/Comments: htn Do you want consulting provider notified?: Yes 12/14/23 21:18 Consult Physician Urgent Consulting Provider: Nicolasa Arita Consult Reason/Comments: hypertension Do you want consulting provider notified?: Yes Primary care physician: Stated None Hospital Course: Discharge Diagnosis: HTN in -- at 15 weeks could be pre-existing HTN or early pre-eclampsia. Hospital Course: Patient is a 33-year-old 4 para 2-0-1-2 who is 15 weeks was sent in by obstetrics due to elevated blood pressure with headaches and shortness of breath in the office. On arrival here her blood pressure was mildly elevated at 138/92. Initial laboratory analysis in the ER was remarkable for an LDH of 322. Creatinine, platelets, and liver function testing was normal. She was admitted for possible preeclampsia. She was monitored overnight and did have some recurrent blood pressures greater than 130. She was seen by cardiology and was started on labetalol once daily. She underwent echocardiogram showed ejection fraction 55 to 60% with mild to moderate tricuspid regurgitation and no significant pulmonary hypertension. OB who recommended increasing labetalol to 100 mg twice daily. Her blood pressures did well and she was asymptomatic after beginning labetalol. She was therefore determined stable for discharge. Follow-up: Follow-up with Dr. Renteria in 2 weeks. Follow blood pressures at home daily and make a log. Labetalol 100 mg twice daily. Follow-up with Dr. Ribera in 1 week. Patient seen and examined at bedside. Headache is resolved,no palpitations, no chest pain. Hx of HTN in the past with and stong family hx of HTN. No other complaints currently. Vital signs reviewed and stable. General: Nontoxic, no distress, appears at stated age Cardiovascular: S1S2 reg, no murmur, positive posterior tibial pulse bilateral, Lungs: CTA bilateral, no rhonchi, no rales, no accessory muscle use Abdominal: Soft, nontender to palpation, no guarding, no appreciable organomegaly Ext: No gross muscle atrophy, no edema b/l lower extremities, no contractures Neuro: CN II-XI grossly intact, no focal neuro deficits Psych: Alert, oriented, appropriate affect A total of 35 minutes of time were spent preparing this complex discharge summary. Patient was discharged on 12/15/23. This dictation was prepared using [employer] voice recognition software. Though every attempt is made to correct errors during dictation some may still exist. Plan - Discharge Summary Discharge Rx Participant: No New Discharge Prescriptions: New Labetalol [Trandate] 100 mg PO BID #60 tab Acetaminophen Tab [Tylenol] 650 mg PO Q6HR PRN tab PRN Reason: Mild Pain Or Fever > 100.5 Discharge Medication List Acetaminophen Tab [Tylenol] 650 mg PO Q6HR PRN tab 12/15/23 [Rx] Labetalol [Trandate] 100 mg PO BID #60 tab 12/15/23 [Rx] Follow up Appointment(s)/Referral(s): Jarret Renteria MD [STAFF PHYSICIAN] - 2 Weeks None,Stated [Primary Care Provider] - 1-2 days Jeancarlos Ribera MD [STAFF PHYSICIAN] - 1 Week Activity/Diet/Wound Care/Special Instructions: Activity: As tolerated Diet: Regular Special Instructions: Please take a vitamin Take your blood pressure once daily and make a log for Dr. Ribera and Dr. Renteria Discharge Disposition: HOME SELF-CARE
[2023-12-15] MEDS ORDERED: LABETALOL 100 MG TAB PO SCH (21:00)
--- NOTE | 2023-12-15 21:06 | CONS ---
CONSULTATION HISTORY OF PRESENT ILLNESS: This is a 33-year-old lady who is about 15 weeks' and this is her 5th . She is here because of an episode of elevated blood pressure that she noted at home. After arrival, her pressures have been reasonably normal. She is resting comfortably, but as recordings indicate her pressure has been elevated up to 150/100. The last 1 that we recorded here was about 133/84, next one was 115/71. She is resting comfortably without symptoms. On her last , she had mildly elevated blood pressure, but after , her pressure was high, but then she was on a medication, she does not recall the name, but she is not on any prior to this . Pressure this morning is good. She is asymptomatic. Vitals are stable. PAST MEDICAL HISTORY: -related hypertension during last . Otherwise, no other major medical issues. Uneventful previous 4 pregnancies. PHYSICAL EXAMINATION: VITAL SIGNS: Blood pressure is 118/71, pulse rate is 74. HEENT: Unremarkable. Fundus was not examined by me. NECK: Supple. No JVD. I do not hear a carotid bruit. HEART: Reveals S1, S2. No significant murmurs. LUNGS: Clear. ABDOMEN: Not performed. EXTREMITIES: Lower extremities reveal normal pulses. No edema. EKG revealed sinus mechanism, no acute changes. Normal EKG. IMPRESSION: -related hypertension which seems to have improved. RECOMMENDATIONS: I am recommending that we can start her on labetalol 100 mg b.i.d. if okayed by her engineering analyst. The patient is in the 2nd trimester of , so I believe there should be no issue with this. I would, however, stop the beta manan at about the 36th week or so. Discussed my thoughts in detail with the patient. Also advised her to have her blood pressure machine checked against the one in the hospital or at her doctor's office to make sure it is accurate. Thank you very much for the consult. MMODL / IJN: [id number] /
== END 2023-12-15 14:57 | disposition home or self-care (01) ==
LOC: EC 15:09 → 4FBP 19:16 → 6NMEDSUR 19:39
PROVIDERS: ADMIT Internal Medicine; ATTEND Internal Medicine
DX: O16.2 Unspecified maternal hypertension, second trimester (principal); Z3A.15 15 weeks gestation of pregnancy; R74.02 Elevation of levels of lactic acid dehydrogenase [LDH]; O99.412 Diseases of the circulatory system complicating pregnancy, second trimester; I07.1 Rheumatic tricuspid insufficiency; Z88.5 Allergy status to narcotic agent; Z98.891 History of uterine scar from previous surgery; Z82.49 Family history of ischemic heart disease and other diseases of the circulatory system
CPT/HCPCS: 99284; 36415; 93306; 80053 ×2; 83615; 83735 ×2; 84100; 84550; 84484 ×2; 85025 ×2; 81003; G0378 ×3

== ENCOUNTER 2024-02-09 10:10 | Emergency (ER) | payer OTHER ==
--- NOTE | 2024-02-09 11:20 | ED ---
General Adult HPI - General Chief complaint: Weakness Stated complaint: SOB 23-24wk Source: patient Mode of arrival: ambulatory Limitations: no limitations - History of Present Illness Initial comments: 33-year-old female who is 23 weeks presents emergency department reporting shortness of breath. She is a patient of Dr. Concepcion. She was seen yesterday in his office for exertional dyspnea. Patient and baby were doing well yesterday however he was scheduling the patient to see cardiology for her symptoms. She denies previous history of cardiac disease or pulmonary disease. She did have hypertension and therefore takes labetalol. She denies history of PE. No lower extremity swelling. Denies any calf pain. No chest pain. Denies any abdominal pain. No cramping or bleeding. No fevers. No headaches or visual changes. No other alleviating, precipitating or modifying factors - Related Data Home Medications Medication Instructions Recorded Confirmed Labetalol [Trandate] 100 mg PO TID 02/09/24 02/09/24 Allergies Allergy/AdvReac Type Severity Reaction Status Date / Time codeine AdvReac Nausea & Verified 02/09/24 13:12 Vomiting Review of Systems ROS Statement: Those systems with pertinent positive or pertinent negative responses have been documented in the HPI. ROS Other: All systems not noted in ROS Statement are negative. Past Medical History Past Medical History: No Reported History History of Any Multi-Drug Resistant Organisms: None Reported Past Surgical History: Section Past Anesthesia/Blood Transfusion Reactions: No Reported Reaction Past Psychological History: No Psychological Hx Reported Smoking Status: Never smoker Past Alcohol Use History: Occasional Past Drug Use History: None Reported General Exam Limitations: no limitations General appearance: alert, in no apparent distress Head exam: Present: atraumatic, normocephalic, normal inspection Eye exam: Present: normal appearance, PERRL, EOMI. Absent: scleral icterus, conjunctival injection, periorbital swelling ENT exam: Present: normal exam, mucous membranes moist Neck exam: Present: normal inspection. Absent: tenderness, meningismus, lymphadenopathy Respiratory exam: Present: normal lung sounds bilaterally. Absent: respiratory distress, wheezes, rales, rhonchi, stridor Cardiovascular Exam: Present: regular rate, normal rhythm, normal heart sounds. Absent: systolic murmur, diastolic murmur, rubs, gallop, clicks GI/Abdominal exam: Present: soft, normal bowel sounds. Absent: distended, tenderness, guarding, rebound, rigid Extremities exam: Present: normal inspection, full ROM, normal capillary refill. Absent: tenderness, pedal edema, joint swelling, calf tenderness Back exam: Present: normal inspection Neurological exam: Present: alert, oriented X3, CN II-XII intact Psychiatric exam: Present: normal affect, normal mood Skin exam: Present: warm, dry, intact, normal color. Absent: rash Course Vital Signs 02/09/24 02/09/24 02/09/24 10:21 11:17 14:44 Temperature 98.2 F 97.9 F Pulse Rate 84 83 88 Respiratory 20 18 18 Rate Blood Pressure 117/81 132/87 122/79 O2 Sat by Pulse 99 98 98 Oximetry Medical Decision Making - Medical Decision Making Was pt. sent in by a medical professional or institution (, PA, ELECTRICAL MECHANICAL TECHNICIAN, urgent care, hospital, or skilled nursing...) When possible be specific @ -No Did you speak to anyone other than the patient for history (EMS, parent, family, police, friend...)? What history was obtained from this source @ -No Did you review nursing and triage notes (agree or disagree)? Why? @ -I reviewed and agree with nursing and triage notes Were old charts reviewed (outside hosp., previous admission, EMS record, old EKG, old radiological studies, urgent care reports/EKG's, skilled nursing records)? Report findings @ -No old charts were reviewed Differential Diagnosis (chest pain, altered mental status, abdominal pain women, abdominal pain men, vaginal bleeding, weakness, fever, dyspnea, syncope, headache, dizziness, GI bleed, back pain, seizure, CVA, palpatations, mental health, musculoskeletal)? @ -Differential Dyspnea: Coronary syndrome, arrhythmia, tamponade, asthma, COPD, pulmonary embolism, pneumonia, pneumothorax, pulmonary effusion, anaphylaxis, diabetic ketoacidosis, flailed chest, pulmonary contusion, diaphragmatic rupture, anemia, nikhil romuscular, this is not meant to be an all-inclusive list. EKG interpreted by me (3pts min.). @ -Yes and demonstrates sinus rhythm with a rate of 78. ME interval 167. QRS 86. QTc of 412. No acute ST segment elevations or depressions X-rays interpreted by me (1pt min.). @ -Yes and demonstrates no acute process CT interpreted by me (1pt min.). @ -None done U/S interpreted by me (1pt. min.). @ -None done What testing was considered but not performed or refused? (CT, X-rays, U/S, labs)? Why? @ -None What meds were considered but not given or refused? Why? @ -None Did you discuss the management of the patient with other professionals (professionals i.e. Dr., PA, ELECTRICAL MECHANICAL TECHNICIAN, lab, RT, psych nurse, social work specialist, roving court reporter, teacher, chief security and safety officer, showcase trimmer)? Give summary @ -Spoke with Dr. Renteria. He is aware of the patient's symptoms. He has already scheduled the patient for cardiology consultation Was smoking cessation discussed for >3mins.? @ -No Was critical care preformed (if so, how long)? @ -No Were there social determinants of health that impacted care today? How? (Homel essness, low income, unemployed, alcoholism, drug addiction, transportation, low edu. Level, literacy, decrease access to med. care, snf, rehab)? @ -No Was there de-escalation of care discussed even if they declined (Discuss DNR or withdrawal of care, Hospice)? DNR status @ -No What co-morbidities impacted this encounter? (DM, HTN, Smoking, COPD, CAD, Cancer, CVA, ARF, Chemo, Hep., AIDS, mental health diagnosis, sleep apnea, morbid obesity)? @ -Hypertension Was patient admitted / discharged? Hospital course, mention meds given and route, prescriptions, significant lab abnormalities, going to OR and other pertinent info. @ -Upon arrival patient seen and evaluated in [place] [address]. Thorough history and physical exam was performed. IV access was established. Laboratory studies are conducted. D-dimer is adjusted for patient's trimester and is within normal limits. Chest x-ray is completed after risks and benefits of radiation exposure discussed with patient. Patient has reassuring labs and imaging at this time. I do feel that the patient needs an echo. We did call the cardiology office and we are able to move up the patient's appointment. Patient was satisfied with this. Instructed to return for any new or worsening symptoms Undiagnosed new problem with uncertain prognosis? @ -Yes Drug Therapy requiring intensive monitoring for toxicity (Heparin, Nitro, Insul in, Cardizem)? @ -No Were any procedures done? @ -No Diagnosis/symptom? @ -Acute exertional dyspnea, second trimester Acute, or Chronic, or Acute on Chronic? @ -Acute Uncomplicated (without systemic symptoms) or Complicated (systemic symptoms)? @ -Complicated Side effects of treatment? @ -No Exacerbation, Progression, or Severe Exacerbation? @ -No Poses a threat to life or bodily function? How? (Chest pain, USA, SC, pneumonia, PE, COPD, DKA, ARF, appy, cholecystitis, CVA, Diverticulitis, Homicidal, Suicidal, threat to staff... and all critical care pts) @ -No - Lab Data Result diagrams: 02/09/24 12:08 02/09/24 12:08 Lab Results 02/09/24 02/09/24 02/09/24 Range/Units 11:00 12:08 12:08 WBC 8.5 (3.8-10.6) k/uL RBC 3.72 L (3.80-5.40) m/uL Hgb 11.9 (11.4-16.0) gm/dL Hct 34.6 (34.0-46.0) % MCV 93.0 (80.0-100.0) fL MCH 31.9 (25.0-35.0) pg MCHC 34.3 (31.0-37.0) g/dL RDW 12.9 (11.5-15.5) % Plt Count 226 (150-450) k/uL MPV 8.3 Neutrophils % 70 % Lymphocytes % 22 % Monocytes % 4 % Eosinophils % 2 % Basophils % 0 % Neutrophils # 6.0 (1.3-7.7) k/uL Lymphocytes # 1.9 (1.0-4.8) k/uL Monocytes # 0.4 (0-1.0) k/uL Eosinophils # 0.2 (0-0.7) k/uL Basophils # 0.0 (0-0.2) k/uL PT 9.7 L (10.0-12.5) sec INR 0.9 (<1.2) APTT 22.2 (22.0-30.0) sec D-Dimer 0.55 (<0.60) mg/L FEU Sodium (137-145) mmol/L Potassium (3.5-5.1) mmol/L Chloride (98-107) mmol/L Carbon Dioxide (22-30) mmol/L Anion Gap mmol/L BUN (7-17) mg/dL Creatinine (0.52-1.04) mg/dL Est GFR (CKD-EPI)AfAm (>60 ml/min/1.73 sqM) Est GFR (CKD-EPI)NonAf (>60 ml/min/1.73 sqM) Glucose (74-99) mg/dL Plasma Lactic Acid Jose F (0.7-2.0) mmol/L Calcium (8.4-10.2) mg/dL Total Bilirubin (0.2-1.3) mg/dL AST (14-36) U/L ALT (4-34) U/L Alkaline Phosphatase (38-126) U/L Troponin I (0.000-0.034) ng/mL NT-Pro-B Natriuret Pep pg/mL Total Protein (6.3-8.2) g/dL Albumin (3.5-5.0) g/dL Urine Color Colorless Urine Appearance Clear (Clear) Urine pH 6.5 (5.0-8.0) Ur Specific Amanda 1.012 (1.001-1.035) Urine Protein Negative (Negative) Urine Glucose (UA) Negative (Negative) Urine Ketones Negative (Negative) Urine Blood Negative (Negative) Urine Nitrite Negative (Negative) Urine Bilirubin Negative (Negative) Urine Urobilinogen <2.0 (<2.0) mg/dL Ur Leukocyte Esterase Negative (Negative) 02/09/24 02/09/24 02/09/24 Range/Units 12:08 12:08 12:08 WBC (3.8-10.6) k/uL RBC (3.80-5.40) m/uL Hgb (11.4-16.0) gm/dL Hct (34.0-46.0) % MCV (80.0-100.0) fL MCH (25.0-35.0) pg MCHC (31.0-37.0) g/dL RDW (11.5-15.5) % Plt Count (150-450) k/uL MPV Neutrophils % % Lymphocytes % % Monocytes % % Eosinophils % % Basophils % % Neutrophils # (1.3-7.7) k/uL Lymphocytes # (1.0-4.8) k/uL Monocytes # (0-1.0) k/uL Eosinophils # (0-0.7) k/uL Basophils # (0-0.2) k/uL PT (10.0-12.5) sec INR (<1.2) APTT (22.0-30.0) sec D-Dimer (<0.60) mg/L FEU Sodium 134 L (137-145) mmol/L Potassium 4.3 (3.5-5.1) mmol/L Chloride 109 H (98-107) mmol/L Carbon Dioxide 19 L (22-30) mmol/L Anion Gap 6 mmol/L BUN 10 (7-17) mg/dL Creatinine 0.44 L (0.52-1.04) mg/dL Est GFR (CKD-EPI)AfAm >90 (>60 ml/min/1.73 sqM) Est GFR (CKD-EPI)NonAf >90 (>60 ml/min/1.73 sqM) Glucose 70 L (74-99) mg/dL Plasma Lactic Acid Jose F 0.9 (0.7-2.0) mmol/L Calcium 9.1 (8.4-10.2) mg/dL Total Bilirubin 0.5 (0.2-1.3) mg/dL AST 23 (14-36) U/L ALT 16 (4-34) U/L Alkaline Phosphatase 78 (38-126) U/L Troponin I <0.012 (0.000-0.034) ng/mL NT-Pro-B Natriuret Pep 21 pg/mL Total Protein 6.6 (6.3-8.2) g/dL Albumin 3.9 (3.5-5.0) g/dL Urine Color Urine Appearance (Clear) Urine pH (5.0-8.0) Ur Specific Amanda (1.001-1.035) Urine Protein (Negative) Urine Glucose (UA) (Negative) Urine Ketones (Negative) Urine Blood (Negative) Urine Nitrite (Negative) Urine Bilirubin (Negative) Urine Urobilinogen (<2.0) mg/dL Ur Leukocyte Esterase (Negative) Disposition Clinical Impression: Exertional dyspnea, Second trimester Disposition: HOME SELF-CARE Condition: Stable Instructions (If sedation given, give patient instructions): Dyspnea (ED) Additional Instructions: Please follow-up at your scheduled appointment on Thursday with the [facility]. Return for any new or worsening symptoms Is patient prescribed a controlled substance at d/c from ED?: No Referrals: Jarret Renteria MD [STAFF PHYSICIAN] - 1-2 days None,Stated [Primary Care Provider] - 1-2 days Juan Hess MD [STAFF PHYSICIAN] - 02/12/24 10:30 am (Please being ID and insurance cards. You will have new patient paperwork to complete. ) Forms: [facility] PCPs Time of Disposition: 14:24
[2024-02-09 11:22] VITALS: RESP 18; TEMP 97.9
[2024-02-09 11:58] LABS: Appearance,Urine Clear (Clear); Bilirubin,Urine Negative (Negative); Blood,Urine Negative (Negative); Color,Urine Colorless; Glucose,Urine (UA) Negative (Negative); Ketones,Urine Negative (Negative); Leukocyte Esterase,Urine Negative (Negative); Nitrite,Urine Negative (Negative); PH, Urine 6.5 (5.0-8.0); Protein,Urine Negative (Negative); Specific Gravity,Urine 1.012 (1.001-1.035); Urobilinogen,Urine <2.0 mg/dL (<2.0)
[2024-02-09 12:20] LABS: Basophils % (A) 0 %; Eosinophils # (A) 0.2 k/uL (0-0.7); Eosinophils % (A) 2 %; HCT 34.6 % (34.0-46.0); HGB 11.9 gm/dL (11.4-16.0); Lymphocytes # (A) 1.9 k/uL (1.0-4.8); Lymphocytes % (A) 22 %; MCH 31.9 pg (25.0-35.0); MCHC 34.3 g/dL (31.0-37.0); Mean Platelet Volume 8.3; Monocytes # (A) 0.4 k/uL (0-1.0); Monocytes % (A) 4 %; Neutrophils % (A) 70 %; Platelet Count 226 k/uL (150-450); RBC 3.72 m/uL (3.80-5.40); RDW 12.9 % (11.5-15.5); WBC 8.5 k/uL (3.8-10.6)
[2024-02-09 12:30] LABS: ALT 16 U/L (4-34); AST 23 U/L (14-36); African American GFR (CKD) >90 (>60 ml/min/1.73 sqM); Albumin 3.9 g/dL (3.5-5.0); Alkaline Phosphatase 78 U/L (38-126); Anion Gap 6 mmol/L; Blood Urea Nitrogen 10 mg/dL (7-17); Calcium 9.1 mg/dL (8.4-10.2); Carbon Dioxide 19 mmol/L (22-30); Chloride 109 mmol/L (98-107); Glucose 70 mg/dL (74-99); Non-African American GFR(CKD) >90 (>60 ml/min/1.73 sqM); Potassium 4.3 mmol/L (3.5-5.1); Sodium 134 mmol/L (137-145); Total Bilirubin 0.5 mg/dL (0.2-1.3); Total Protein 6.6 g/dL (6.3-8.2)
[2024-02-09 12:37] LABS: INR 0.9 (<1.2); NT-Pro-B-Type Natriuretic Pept 21 pg/mL; Partial Thromboplastin Time 22.2 sec (22.0-30.0); Prothrombin Time 9.7 sec (10.0-12.5)
--- NOTE | 2024-02-09 13:25 | XR ---
EXAMINATION TYPE: XR chest 2V DATE OF EXAM: 02/09/2024 1:05 PM CLINICAL INDICATION:Female, 33 years old with history of Cough/pain; COMPARISON: Chest radiographs from 02/29/2024 TECHNIQUE: XR chest 2V Frontal and lateral views of the chest. FINDINGS: Lungs/Pleura: There is no evidence of pleural effusion, focal consolidation, or pneumothorax. Pulmonary vascularity: Unremarkable. Heart/mediastinum: Cardiomediastinal silhouette is unremarkable. Musculoskeletal: No acute osseous pathology. IMPRESSION: No acute cardiopulmonary disease/process.
[2024-02-09 15:03] VITALS: BP 122/79; PULSE 88
== END 2024-02-09 14:45 | disposition home or self-care (01) ==
LOC: EC 10:10
DX: O26.892 Other specified pregnancy related conditions, second trimester (principal); R06.00 Dyspnea, unspecified; Z88.5 Allergy status to narcotic agent; Z3A.24 24 weeks gestation of pregnancy
CPT/HCPCS: 36415; 71046; 80053; 81003; 83605; 83880; 84484; 85025; 85379; 85610; 85730; 93005; 99285

== ENCOUNTER → 2024-05-05 | Outpatient (CLI) | payer OTHER ==
[2024-05-05 16:53] LABS: Appearance,Urine Clear (Clear); Bilirubin,Urine Negative (Negative); Blood,Urine Negative (Negative); Color,Urine Colorless; Glucose,Urine (UA) Negative (Negative); Ketones,Urine 1+ (Negative); Leukocyte Esterase,Urine Negative (Negative); Nitrite,Urine Negative (Negative); PH, Urine 6.5 (5.0-8.0); Protein,Urine Negative (Negative); Specific Gravity,Urine 1.012 (1.001-1.035); Urobilinogen,Urine <2.0 mg/dL (<2.0)
[2024-05-05 16:54] LABS: ALT 16 U/L (4-34); AST 28 U/L (14-36); African American GFR (CKD) >90 (>60 ml/min/1.73 sqM); Blood Urea Nitrogen 8 mg/dL (7-17); LDH 198 U/L (120-246); Non-African American GFR(CKD) >90 (>60 ml/min/1.73 sqM); Uric Acid 5.4 mg/dL (3.7-7.4)
[2024-05-05 17:02] LABS: Basophils % (A) 0 %; Eosinophils # (A) 0.1 k/uL (0-0.7); Eosinophils % (A) 1 %; HCT 34.6 % (34.0-46.0); HGB 11.5 gm/dL (11.4-16.0); Lymphocytes # (A) 1.8 k/uL (1.0-4.8); Lymphocytes % (A) 21 %; MCH 30.6 pg (25.0-35.0); MCHC 33.2 g/dL (31.0-37.0); MCV 92.3 fL (80.0-100.0); Mean Platelet Volume 8.8; Monocytes # (A) 0.4 k/uL (0-1.0); Monocytes % (A) 5 %; Neutrophils # (A) 5.8 k/uL (1.3-7.7); Neutrophils % (A) 70 %; Platelet Count 209 k/uL (150-450); RBC 3.75 m/uL (3.80-5.40); WBC 8.2 k/uL (3.8-10.6)
[2024-05-05 17:06] LABS: Creatinine,Urine Random 67.9 mg/dL; Protein/Creatinine Ratio,Urine 0.088
[2024-05-05] MEDS: LACTATED RINGERS 2,000 ML IV ONE (17:35)
[2024-05-05 19:34] VITALS: BP 139/83; PULSE 88; RESP 17; TEMP 97
--- NOTE | 2024-05-20 09:19 | P.MSEPDOC ---
Presenting Problems - Arrival Data Date of Arrival on Unit: 05/05/24 Time of Arrival on Unit: 14:49 Mode of Transport: Ambulatory - Complaint OB-Reason for Admission/Chief Complaint: PIH Comment: Pt of Dr díaz presents to triage with written orders for PIH eval. pt states she has been feeling dizzy for the past few days and her lower extremity swelling has gotten worse and she has a mild headache Medical History - Information : 4 Para: 3 Term: 3 : 0 Abortions: Spontaneous or Elective: 0 Number of Living Children: 2 - Gestational Age Gestational Age by DANG (wks/days): 35 Weeks and 6 Days Review of Systems - Review of Systems Constitutional: No problems Breast: No problems ENT: No problems Cardiovascular: No problems Respiratory: No problems Gastrointestinal: No problems Genitourinary: No problems Musculoskeletal: No problems Neurological: No problems Skin: No problems Vital Signs - Temperature Temperature: 97.0 F Temperature Source: Temporal Artery Scan - Pulse Pulse Oximetery Pulse Rate: 88 Pulse Assessment Method: Pulse Oximetry - Respirations Respiratory Rate: 17 Oxygen Delivery Method: Room Air O2 Sat by Pulse Oximetry: 97 - Blood Pressure Right Arm Blood Pressure: 139/83 Blood Pressure Mean: 101 Blood Pressure Source: Automatic Cuff Medical Screen Scoring - Assessment - Baby A Baseline FHR: 130 Heart Rate - NICHD Category: Category I (Normal) NST: Reactive Physician Notification - Physician Notified Physician Notified Date: 05/05/24 Physician Notified Time: 17:10 Physician: Jarret Díaz New Order Received: Yes - Notification Comment Comment: Called dr díaz, report given, labs reviewed, BP readings reviewed, nst reactive. per torb administer 2L Lactated Ringers IV bolus, and then pt may be discharged home Maternal Triage Index - Maternal Triage Index Presenting for scheduled procedure w/no complaint: No - Stat/Priority 1 Stat Priority 1: No - Urgent/Priority 2 Urgent Priority 2: No - Prompt/Priority 3 Prompt Priority 3: No - Non-Urgent/Priority 4 Non-Urgent Priority 4: No - Scheduled/Requesting Priority 5 Scheduled/Requesting Priority 5: Yes Criteria Met for Priority 5: Written orders from Dr. Díaz for PIH workup Disposition - Disposition OB Disposition: Discharge to home, Written follow up instructions reviewed Discharge Date: 05/05/24 Discharge Time: 19:10 I agree with the RN Medical Screening Exam: Yes Case reviewed; plan agreed upon as documented in EMR&OBIX.: Yes Diagnosis: RELATED CONDITIONS, UNSPECIFIED, THIRD TRIMESTER
== END ==
LOC: FBPOP 14:49
PROVIDERS: ATTEND Obstetrics & Gynecology
CPT/HCPCS: 59025; 81003; 82565; 82570; 83615; 84156; 84450; 84460; 84520; 84550; 85025; 96360; 96361; 99215

== ENCOUNTER 2024-05-20 08:09 | Inpatient (IN) | payer OTHER ==
[2024-05-20] MEDS ORDERED: CARBOPROST TROMETHAMINE 250 MCG/ML 1 ML AMP IM PRN (08:45)
[2024-05-20] MEDS ORDERED: miSOPROStoL 200 MCG TAB PO PRN (08:45)
[2024-05-20] MEDS ORDERED: OXYTOCIN 10 UNIT/ML 1 ML VIAL IM PRN (08:45)
[2024-05-20] MEDS ORDERED: TRANEXAMIC 1,000 MG/100ML-NACL 1,000 MG in EMPTY BAG 1 BAG IV PRN (08:45)
[2024-05-20] MEDS ORDERED: OXYTOCIN 30 UNITS/500 ML NS 30 UNIT in SALINE 1 500ML.BAG IV SCH (08:45)
[2024-05-20] MEDS ORDERED: METHYLERGONOVINE 0.2 MG/ML 1 ML AMP IM PRN (08:45)
[2024-05-20 08:58] LABS: Basophils % (A) 0 %; Eosinophils # (A) 0.1 k/uL (0-0.7); Eosinophils % (A) 2 %; HCT 34.9 % (34.0-46.0); HGB 11.2 gm/dL (11.4-16.0); Lymphocytes # (A) 1.4 k/uL (1.0-4.8); Lymphocytes % (A) 24 %; MCH 30.1 pg (25.0-35.0); MCHC 32.2 g/dL (31.0-37.0); MCV 93.5 fL (80.0-100.0); Mean Platelet Volume 8.5; Monocytes # (A) 0.4 k/uL (0-1.0); Monocytes % (A) 6 %; Neutrophils # (A) 3.8 k/uL (1.3-7.7); Neutrophils % (A) 65 %; Platelet Count 210 k/uL (150-450); RBC 3.73 m/uL (3.80-5.40); RDW 12.9 % (11.5-15.5); WBC 5.8 k/uL (3.8-10.6)
--- NOTE | 2024-05-20 09:05 | P.HPOB ---
History of Present Illness H&P Date: 05/20/24 Chief Complaint: 38 weeks, IUGR, previous section x 2 The patient is a 34-year-old 4 para 2-1-0-4 admitted at 38+ weeks as established by last menstrual period and confirmed by 9-week ultrasound. She is admitted for repeat low-transverse section with intraoperative bilateral salpingectomy having undergone 2 previous sections and requesting repeat with permanent sterilization. Her has been complicated by chronic hypertension for which she has had reassuring testing beginning at 32 weeks. She was additionally diagnosed at approximately 28 weeks with intrauterine growth restriction for which she has had twice weekly nonstress testing as well as weekly biophysical profile, amniotic fluid index, and cord Doppler studies which have remained reassuring throughout the entire . She additionally carries a history of possible cardiomyopathy and developed some symptoms of shortness of breath during the for which she was evaluated by cardiology and cleared of any cardiac concerns. On labor delivery, all signs are reassuring with a category 1 heart rate tracing. She has reconfirmed her desire for permanent sterilization. Group B strep status is negative. Obstetrical history: 4 para 2-1-0-4 with 1 vaginal delivery followed by 2 sections, 1 for twins at 31 weeks. Current statistics are listed in the history of present illness. EDC of 06/03/2024 was established by last menstrual period and confirmed by 9-week ultrasound. Laboratory workup demonstrates a blood type of O+ with a negative antibody screen. Rubella status is immune. The remainder of the laboratory workup was within normal limits. Early Glucola and second trimester Glucola were entirely normal. Group B strep status is negative. Gynecologic history: Unremarkable with no history of any infections to include STDs. Review of Systems Review of systems is confined to history of present illness. Past Medical History Past Medical History: GERD/Reflux, Hypertension, Musculoskeletal Disorder Additional Past Medical History / Comment(s): preeclampsia vs. existing htn, scoliosis History of Any Multi-Drug Resistant Organisms: None Reported Past Surgical History: Section Additional Past Surgical History / Comment(s): CS x 2 Past Anesthesia/Blood Transfusion Reactions: No Reported Reaction, Postoperative Nausea & Vomiting (PONV) Past Psychological History: No Psychological Hx Reported Smoking Status: Never smoker Past Alcohol Use History: None Reported Past Drug Use History: None Reported - Past Family History Mother Family Medical History: Diabetes Mellitus, Hypertension Medications and Allergies Home Medications Medication Instructions Recorded Confirmed Type Labetalol [Trandate] 100 mg PO BID 02/09/24 05/20/24 History Omeprazole [PriLOSEC] 20 mg PO DAILY 05/19/24 05/20/24 History Allergies Allergy/AdvReac Type Severity Reaction Status Date / Time codeine AdvReac Nausea & Verified 05/20/24 08:44 Vomiting Exam Vital Signs Temp Pulse Resp BP Pulse Ox 05/20/24 08:48 97.2 F L 98 16 117/66 100 Intake and Output 05/19/24 05/20/24 05/20/24 22:59 06:59 14:59 Other: Weight 95.708 kg General, this is a well-developed, well-nourished white female in no acute distress. Her heart has a regular rhythm and rate without murmur. Her lungs clear to auscultation bilaterally in all kramer. Her abdomen is gravid, nondistended, has normal active bowel sounds, soft, nontender, and without any palpable masses aside from the uterine fundus. Her extremities are without any cyanosis, clubbing, or edema and are nontender to palpation bilaterally. Digital cervical examination is deferred. Assessment and Plan (1) Term Current Visit: Yes Status: Acute Code(s): Z34.90 - ENCNTR FOR SUPRVSN OF NORMAL , UNSP, UNSP TRIMESTER SNOMED Code(s): 24590103 (2) Intrauterine growth restriction (IUGR) affecting care of mother Current Visit: Yes Status: Acute Code(s): O36.5990 - MATERN CARE FOR OTH OR SUSP POOR FETL GRTH, UNSP TRI, UNSP SNOMED Code(s): 097880816 (3) Previous section Current Visit: Yes Status: Acute Code(s): Z98.891 - HISTORY OF UTERINE SCAR FROM PREVIOUS SURGERY SNOMED Code(s): 025780828 (4) Family planning Current Visit: Yes Status: Acute Code(s): Z30.09 - ENCOUNTER FOR OTH GENERAL CNSL AND ADVICE ON CONTRACEPTION SNOMED Code(s): 872326567 Plan: Patient is admitted for repeat low-transverse section with intraoperative bilateral salpingectomy. She has been counseled extensively regarding these procedures and has understood and agreed to proceed. She is in clear understanding of the permanent nature of salpingectomy.
[2024-05-20] MEDS: LACTATED RINGERS 1,000 ML IV ONE (09:21)
[2024-05-20] MEDS: CITRIC ACID-SODIUM CITRATE 15 ML CUP PO ONE (09:22)
[2024-05-20] MEDS ORDERED: KETOROLAC 15 MG/ML 1 ML VIAL ONE (10:08)
[2024-05-20] MEDS ORDERED: MORPHINE SULFATE (PF) 0.3 MG/0.3 ML SYR ONE (10:08)
[2024-05-20] MEDS ORDERED: OXYTOCIN 30 UNITS/500 ML NS BAG IV ONE (10:08)
[2024-05-20] MEDS ORDERED: ONDANSETRON 4 MG/2 ML VIAL ONE (10:08)
[2024-05-20] MEDS ORDERED: NALBUPHINE 10 MG/ML (10 ML MDV) ONE (10:08)
[2024-05-20] MEDS ORDERED: METOCLOPRAMIDE 5 MG/ML 2 ML VIAL IVP PRN (11:09)
[2024-05-20] MEDS ORDERED: ZOLPIDEM 5 MG TAB PO PRN (11:09)
[2024-05-20] MEDS ORDERED: NALOXONE 0.4 MG/ML 1 ML VIAL IV PRN (11:09)
[2024-05-20] MEDS ORDERED: diphenhydrAMINE 50 MG/ML 1 ML VIAL IVP PRN (11:09)
[2024-05-20] MEDS ORDERED: SIMETHICONE 80 MG CHEWABLE PO PRN (11:09)
[2024-05-20] MEDS ORDERED: ONDANSETRON 4 MG/2 ML VIAL IVP PRN (11:09)
[2024-05-20] MEDS ORDERED: diphenhydrAMINE 50 MG CAP PO PRN (11:09)
[2024-05-20] MEDS ORDERED: LANOLIN CREAM 1 GM TUBE TOPICAL PRN (11:09)
[2024-05-20] MEDS ORDERED: diphenhydrAMINE 25 MG CAP PO PRN (11:09)
--- NOTE | 2024-05-20 11:18 | P.OP ---
Date of Procedure: 05/20/24 Preoperative Diagnosis: #1. 38-0/7 weeks intrauterine #2. Previous section x 2 #3. Intrauterine growth restriction #4. Chronic hypertension #5. Undesired fertility Postoperative Diagnosis: Same Procedure(s) Performed: #1. Repeat low-transverse section #2. Intraoperative bilateral salpingectomy Anesthesia: spinal Surgeon: Jarret Renteria Induction Heating Equipment Setter #1: Eve Mead Estimated Blood Loss (ml): 315 IV fluids (ml): 800 Urine output (ml): 50 Pathology: other (Placenta) Condition: stable Disposition: floor Operative Findings: Preoperatively, the patient reaffirmed her desire for permanent sterilization. She was taken to the operating room where she underwent repeat low-transverse section and was delivered of a viable 5 pound 12 ounce baby girl with Apgars of 8 at 1 minute and 9 at 5 minutes in the occiput transverse position. The placenta was delivered manually, intact, grossly normal with a grossly normal three-vessel cord. The uterus, tubes, and ovaries were entirely normal to inspection. The bilateral fallopian tubes were removed and completely to the cornual insertion using a LigaSure device and sent together as a single specimen to pathology. There was a moderate amount of scarring at the level of the fascia in the lower uterine segment was moderately thin. Clear urine was noted throughout. Description of Procedure: The patient was prepped and draped in usual fashion after spinal anesthesia was administered by the anesthesiologist. A Pfannenstiel incision was made through pre-existing scar and extended into the abdominal cavity with no significant difficulty though there was a moderate amount of scarring at the level of the fascia and rectus muscles. The bladder peritoneum was noted to be scarred some what high and was therefore elevated, incised, and reflected distally. A 2 cm incision was made in the lower uterine segment in the transverse plane where the tissue was noted to be moderately thin. Clear fluid was noted. The incision was extended in both directions using the bandage scissors. The head was delivered up and through the incision with some difficulty primarily secondary to the lack of labor in the head floating high in the pelvis. The nose and mouth were thoroughly suctioned on the abdomen. The remainder of the infant was delivered onto the field where the cord was doubly clamped, cut, and the passed for resuscitative measures with weight and Apgars as noted above. The placenta was delivered manually and intact as noted above. The uterus was exteriorized and the anterior cavity the uterus swept of any remaining placental or membranous fragments. The margins of the uterine incision were grasped with Lopez clamps and the incision closed in a single running locking stitch of 0 chromic catgut. There was some ongoing bleeding noted at the left portion of the incision inside of the ankle which was made hemostatic with a single [id number] stitch of 0 chromic catgut. After reaffirming with the patient that she desired bilateral salpingectomy, the LigaSure device was utilized to remove each fallopian tube from its fimbriated end to the cornual insertion. The 2 tubes were sent together as a single specimen. The posterior cul-de-sac was suctioned with a guard followed by laparotomy sponge. The uterus was replaced within the abdominal cavity and the gutters swept of any remaining blood, fluid, or clot. The incision was reexamined on the uterus and noted to be hemostatic. The parietal peritoneum was loosely reapproximated and the layer of muscles examined and made hemostatic with the Bovie. The fascia was closed with 2 running stitches of 0 Vicryl proceeding from the lateral margins to the midpoint. The subcutaneous tissues were irrigated, made hemostatic with the Bovie, and reapproximated with a running stitch of 3-0 plain catgut. The skin was closed with a running subcuticular stitch of 4-0 Vicryl followed by half-inc h Steri-Strips placed with Mastisol. Quantitative blood loss for the case was 315 mL. There were no complications. All sponge, instrument, and needle counts were correct. Both mother and infant are resting comfortably in recovery.
[2024-05-20] MEDS ORDERED: MORPHINE SULFATE 2 MG/ML SYRINGE IVP PRN (12:36)
[2024-05-20] MEDS: diphenhydrAMINE 50 MG/ML 1 ML VIAL IVP PRN (15:22)
[2024-05-20] MEDS: KETOROLAC 15 MG/ML 1 ML VIAL IVP PRN (15:22)
[2024-05-20] MEDS: SENNOSIDES-DOCUSATE SODIUM 1 EACH TAB PO SCH (20:05)
[2024-05-20] MEDS: ACETAMINOPHEN TAB 500 MG TAB PO SCH (20:05)
[2024-05-20] MEDS: LABETALOL 100 MG TAB PO SCH (21:20)
[2024-05-20] MEDS: LACTATED RINGERS 1,000 ML IV SCH ×2 (21:28→21:29)
[2024-05-20] MEDS: IBUPROFEN 600 MG TAB PO SCH (21:29)
[2024-05-21 04:59] LABS: Basophils % (A) 0 %; Eosinophils # (A) 0.1 k/uL (0-0.7); Eosinophils % (A) 2 %; Lymphocytes # (A) 1.8 k/uL (1.0-4.8); Lymphocytes % (A) 27 %; MCH 31.5 pg (25.0-35.0); MCHC 33.8 g/dL (31.0-37.0); MCV 93.2 fL (80.0-100.0); Mean Platelet Volume 9.2; Monocytes # (A) 0.5 k/uL (0-1.0); Monocytes % (A) 7 %; Neutrophils % (A) 62 %; Platelet Count 158 k/uL (150-450); RBC 3.01 m/uL (3.80-5.40); RDW 13.4 % (11.5-15.5); WBC 6.4 k/uL (3.8-10.6)
[2024-05-21 05:05] LABS: HGB 9.5 gm/dL (11.4-16.0)
--- NOTE | 2024-05-21 09:09 | P.PN ---
Progress Note - Text Adequate analgesia from spinal Duramorph. No complications from spinal.
--- NOTE | 2024-05-21 10:00 | P.PNOBGPC ---
Subjective - Subjective Principal diagnosis: Postop day 1, repeat section with bilateral salpingectomy Interval history: Patient is doing well postoperatively. She is ambulating and voiding without difficulty. She states her pain is well-controlled. She denies concerns. Infant remains in the nursery on oxygen therapy. Patient reports: Reports appetite normal, Reports voiding normally, Reports pain well controlled, Reports ambulating normally Vinson: doing well (Special care nursery) Objective - Vital Signs Latest vital signs: Vital Signs Temp Pulse Resp BP Pulse Ox 05/21/24 03:48 98.1 F 85 16 129/76 98 05/21/24 00:00 98.3 F 89 16 117/68 97 05/20/24 20:00 97.5 F L 89 16 140/76 98 05/20/24 15:21 98.2 F 71 16 140/70 100 05/20/24 13:21 98.0 F 57 L 16 136/55 98 05/20/24 13:06 66 16 132/61 99 05/20/24 12:51 61 16 132/61 05/20/24 12:36 52 L 16 139/61 98 05/20/24 12:21 73 16 135/69 99 05/20/24 12:06 71 16 135/63 98 05/20/24 11:51 75 16 134/62 99 05/20/24 11:36 76 16 122/58 05/20/24 11:21 98.0 F 85 16 146/60 100 Intake and Output 05/20/24 05/21/24 05/21/24 22:59 06:59 14:59 Output Total 300 300 Balance -300 -300 Output: Urine 300 300 Uretheral ([place]) 100 Other: # Voids 1 1 1 - Exam Extremities: Present: normal, edema Abdomen: Present: normal appearance Incision: Present: normal, dry, intact Uterus: Present: normal, firm - Labs Labs: Abnormal Lab Results - Last 24 Hours (Table) 05/21/24 Range/Units 03:34 RBC 3.01 L (3.80-5.40) m/uL Hgb 9.5 L D (11.4-16.0) gm/dL Hct 28.0 L (34.0-46.0) % Assessment and Plan (1) Family planning Current Visit: Yes Status: Acute Code(s): Z30.09 - ENCOUNTER FOR OTH GENERAL CNSL AND ADVICE ON CONTRACEPTION SNOMED Code(s): 569322227 (2) Intrauterine growth restriction (IUGR) affecting care of mother Current Visit: Yes Status: Acute Code(s): O36.5990 - MATERN CARE FOR OTH OR SUSP POOR FETL GRTH, UNSP TRI, UNSP SNOMED Code(s): 149093950 (3) Previous section Current Visit: Yes Status: Acute Code(s): Z98.891 - HISTORY OF UTERINE SCAR FROM PREVIOUS SURGERY SNOMED Code(s): 717844107 (4) S/P section Current Visit: Yes Status: Acute Code(s): Z98.891 - HISTORY OF UTERINE SCAR FROM PREVIOUS SURGERY SNOMED Code(s): 256391417 (5) Term Current Visit: Yes Status: Acute Code(s): Z34.90 - ENCNTR FOR SUPRVSN OF NORMAL , UNSP, UNSP TRIMESTER SNOMED Code(s): 83027985 Plan: Patient is doing well postoperatively. Encourage increase ambulation, continue routine postoperative care.
--- NOTE | 2024-05-22 11:40 | P.PNOBGPC ---
Subjective - Subjective Principal diagnosis: Postop day #2 Interval history: Patient is doing well postoperatively. She is ambulating and voiding without difficulty. She states her pain is well-controlled. She is breast-feeding with some difficulty. Infant remains in the nursery. Patient reports: Reports appetite normal, Reports voiding normally, Reports pain well controlled, Reports ambulating normally : doing well (In special care nursery) Objective - Vital Signs Latest vital signs: Vital Signs Temp Pulse Resp BP Pulse Ox 05/22/24 08:00 98.4 F 94 18 142/68 05/22/24 00:00 99.1 F 89 16 129/84 96 05/21/24 20:30 98.2 F 83 16 142/89 99 Intake and Output 05/21/24 05/22/24 05/22/24 22:59 06:59 14:59 Other: # Voids 2 2 1 - Exam Extremities: Present: normal, edema Abdomen: Present: normal appearance, soft Incision: Present: normal, dry Uterus: Present: normal, firm Assessment and Plan (1) Family planning Current Visit: Yes Status: Acute Code(s): Z30.09 - ENCOUNTER FOR OTH GENERAL CNSL AND ADVICE ON CONTRACEPTION SNOMED Code(s): 902632535 (2) Intrauterine growth restriction (IUGR) affecting care of mother Current Visit: Yes Status: Acute Code(s): O36.5990 - MATERN CARE FOR OTH OR SUSP POOR FETL GRTH, UNSP TRI, UNSP SNOMED Code(s): 710023776 (3) Previous section Current Visit: Yes Status: Acute Code(s): Z98.891 - HISTORY OF UTERINE SCAR FROM PREVIOUS SURGERY SNOMED Code(s): 700920109 (4) S/P section Current Visit: Yes Status: Acute Code(s): Z98.891 - HISTORY OF UTERINE SCAR FROM PREVIOUS SURGERY SNOMED Code(s): 241404560 (5) Term Current Visit: Yes Status: Acute Code(s): Z34.90 - ENCNTR FOR SUPRVSN OF NORMAL , UNSP, UNSP TRIMESTER SNOMED Code(s): 00666294 Plan: Patient is doing well . Will plan to continue routine postoperative care.
--- NOTE | 2024-05-23 08:45 | P.PNOBGPC ---
Subjective - Subjective Patient reports: Reports appetite normal, Reports voiding normally, Reports pain well controlled, Reports ambulating normally : doing well, in NICU Objective - Vital Signs Latest vital signs: Vital Signs Temp Pulse Pulse Resp BP BP Pulse Ox 05/23/24 08:20 98.4 F 101 H 18 148/86 97 05/23/24 02:15 98.4 F 92 18 145/86 98 05/22/24 16:00 98.2 F 84 18 135/83 Intake and Output 05/22/24 05/23/24 05/23/24 22:59 06:59 14:59 Other: # Voids 1 1 - Exam Extremities: Present: normal, edema Abdomen: Present: normal appearance, soft. Absent: distention, tenderness Incision: Present: normal, dry, intact Uterus: Present: normal, firm (The uterine fundus is tonic and appropriately tender below the umbilicus.) Assessment and Plan (1) Term Current Visit: Yes Status: Acute Code(s): Z34.90 - ENCNTR FOR SUPRVSN OF NORMAL , UNSP, UNSP TRIMESTER SNOMED Code(s): 27260567 (2) Intrauterine growth restriction (IUGR) affecting care of mother Current Visit: Yes Status: Acute Code(s): O36.5990 - MATERN CARE FOR OTH OR SUSP POOR FETL GRTH, UNSP TRI, UNSP SNOMED Code(s): 785113197 (3) Previous section Current Visit: Yes Status: Acute Code(s): Z98.891 - HISTORY OF UTERINE SCAR FROM PREVIOUS SURGERY SNOMED Code(s): 070878268 (4) Family planning Current Visit: Yes Status: Acute Code(s): Z30.09 - ENCOUNTER FOR OTH GENERAL CNSL AND ADVICE ON CONTRACEPTION SNOMED Code(s): 812022049 (5) S/P section Current Visit: Yes Status: Acute Code(s): Z98.891 - HISTORY OF UTERINE SCAR FROM PREVIOUS SURGERY SNOMED Code(s): 133125017 Plan: The remains in the special care nursery coming off of high flow oxygen for several days. She will likely be discharged tomorrow. As a result, the patient will remain in the hospital today with continued routine and postoperative care. I would anticipate discharge home tomorrow pending no further complications.
[2024-05-23 15:38] VITALS: TEMP 98.3
[2024-05-23 22:42] VITALS: RESP 16
[2024-05-24 08:39] VITALS: BP 127/84; PULSE 91
--- NOTE | 2024-05-24 08:41 | P.DS ---
Providers Date of admission: 05/20/24 08:09 Expected date of discharge: 05/24/24 Attending physician: Jarret Renteria Primary care physician: Stated None - Discharge Diagnosis(es) (1) Term Current Visit: Yes Status: Acute (2) Intrauterine growth restriction (IUGR) affecting care of mother Current Visit: Yes Status: Acute (3) Previous section Current Visit: Yes Status: Acute (4) Family planning Current Visit: Yes Status: Acute (5) S/P section Current Visit: Yes Status: Acute Hospital Course: The patient is a 34-year-old 4 para 2-1-0-4 admitted at 38+ weeks by good dating parameters. She is admitted for repeat low-transverse section with intraoperative bilateral salpingectomy having undergone 2 previous sections and requested repeat. Her was complicated by chronic hypertension which has been well-controlled on labetalol. She was found with intrauterine growth restriction beginning at approximately 28 weeks and had twice weekly reassuring testing thereafter. She had some issues with shortness of breath during the and had cardiology evaluation which was negative. On labor and delivery, all signs were reassuring with a category 1 heart rate tracing. She was taken to the operating room where she was delivered of a viable 5 pound 12 ounce baby girl with Apgars of 8 at 1 minute and 9 at 5 minutes. Her course was unremarkable with vital signs remaining stable and her temperature was afebrile throughout. The infant did have some initial issues with breathing and required high flow oxygen for 2 days and remained in the nursery until postoperative day #4 at which time the was likely to be released. The patient was discharged to home on and postoperative day #4 to follow-up in the office in 2 weeks for an incision check in 6 weeks routinely. Discharge instructions included calling for any significantly increased bleeding or foul-smelling lochia, significantly increased fever abdominal pain, perineal complaints, breast complaints, inc isional complaints, or anything else that concerned her. She was additionally instructed to have nothing in the vagina for a 6 weeks time to include intercourse. She was to do no heavy lifting over the same period of time. She was lastly instructed to do no driving until off of all pain medications or 2 weeks time, whichever came first. She understood her instructions and agrees to follow-up as noted above. Discharge medications included continued vitamins as she has opted to breast-feed. She was otherwise to use [id number] analgesic pain medications as needed and declined a prescription for narcotics. She was provided with prescription for Zoloft 50 mg, 1 p.o. daily, #30 dispensed with 5 refills. Maternal blood type is O+ and rubella status is immune. Discharge hemoglobin and hematocrit were 9.5 and 28.0 respectively. As a result, she was also instructed to use iron sulfate once daily for approximately a month in order to rebuild her hemoglobin. Procedures: 1. Repeat low-transverse section #2. Intraoperative bilateral salpingectomy Patient Condition at Discharge: Stable Plan - Discharge Summary Discharge Rx Participant: No New Discharge Prescriptions: No Action Labetalol [Trandate] 100 mg PO BID Omeprazole [PriLOSEC] 20 mg PO DAILY Discharge Medication List Labetalol [Trandate] 100 mg PO BID 02/09/24 [History] Omeprazole [PriLOSEC] 20 mg PO DAILY 05/19/24 [History] Follow up Appointment(s)/Referral(s): Jarret Renteria MD [STAFF PHYSICIAN] - 06/06/24 1:45 pm (Post Appointment 06-28-2024 at 1:45pm) Discharge Disposition: HOME SELF-CARE
== END 2024-05-24 13:19 | disposition home or self-care (01) | DRG 539 ==
LOC: 4FBP 08:09
PROVIDERS: ADMIT Obstetrics & Gynecology; ATTEND Obstetrics & Gynecology
PROC: 0UB70ZZ Excision of Bilateral Fallopian Tubes, Open Approach (ICD-10-PCS; 2024-05-20)
PROC: 10D00Z1 Extraction of Products of Conception, Low, Open Approach (ICD-10-PCS; principal; 2024-05-20 10:00)
DX: O34.211 Maternal care for low transverse scar from previous cesarean delivery (principal); O32.8XX0 Maternal care for other malpresentation of fetus, not applicable or unspecified; M41.9 Scoliosis, unspecified; O36.5930 Maternal care for other known or suspected poor fetal growth, third trimester, not applicable or unspecified; Z30.2 Encounter for sterilization; Z37.0 Single live birth; Z3A.38 38 weeks gestation of pregnancy; Z79.899 Other long term (current) drug therapy; O99.62 Diseases of the digestive system complicating childbirth; O10.92 Unspecified pre-existing hypertension complicating childbirth; K21.9 Gastro-esophageal reflux disease without esophagitis; Z82.49 Family history of ischemic heart disease and other diseases of the circulatory system; Z88.5 Allergy status to narcotic agent
CPT/HCPCS: 85025; 86850; 86900; 86901; 88302; 88307

== ENCOUNTER 2024-08-05 16:47 | Emergency (ER) | payer MEDICARE, OTHER ==
--- NOTE | 2024-08-05 17:21 | ED ---
Lower Extremity Injury HPI - General Stated Complaint: L Ankle Injury Time Seen by Provider: 08/05/24 17:02 Source: patient, RN notes reviewed Mode of arrival: ambulatory Limitations: no limitations - History of Present Illness Initial Comments: Quick note: This is a 34-year-old female presenting with left ankle injury x 1 hour. Patient states she was holding her baby when she rolled her ankle, hearing a "snap". Endorses swelling and pain on outer aspect. Denies striking head, loss consciousness or any other injury. MD Complaint: ankle injury Time: 16:10 - Related Data Home Medications Medication Instructions Recorded Confirmed Labetalol [Trandate] 100 mg PO BID 02/09/24 05/20/24 Omeprazole [PriLOSEC] 20 mg PO DAILY 05/19/24 05/20/24 Allergies Allergy/AdvReac Type Severity Reaction Status Date / Time codeine AdvReac Nausea & Verified 08/05/24 17:30 Vomiting Review of Systems ROS Statement: Those systems with pertinent positive or pertinent negative responses have been documented in the HPI. ROS Other: All systems not noted in ROS Statement are negative. Past Medical History Past Medical History: GERD/Reflux, Hypertension, Musculoskeletal Disorder Additional Past Medical History / Comment(s): preeclampsia vs. existing htn, scoliosis History of Any Multi-Drug Resistant Organisms: None Reported Past Surgical History: Section Additional Past Surgical History / Comment(s): CS x 2 Past Anesthesia/Blood Transfusion Reactions: No Reported Reaction, Postoperative Nausea & Vomiting (PONV) Past Psychological History: No Psychological Hx Reported Smoking Status: Never smoker Past Alcohol Use History: None Reported Past Drug Use History: None Reported - Past Family History Mother Family Medical History: Diabetes Mellitus, Hypertension General Exam - General Exam Comments Initial Comments: Visual Physical Exam Vital signs reviewed General: Well-appearing, nontoxic, no acute distress. Head: Normocephalic, atraumatic Eyes: PERRLA, EOMI ENT: Airway patent Chest: Nonlabored breathing Skin: No visual rash, normal skin tone Neuro: Alert and oriented 3 Musculoskeletal: No gross abnormalities. Left lateral ankle edema without ecchymosis noted General appearance: alert, in no apparent distress Head exam: Present: atraumatic, normocephalic, normal inspection Eye exam: Present: normal appearance, PERRL, EOMI. Absent: scleral icterus, conjunctival injection, periorbital swelling ENT exam: Present: normal exam, mucous membranes moist Neck exam: Present: normal inspection. Absent: tenderness, meningismus, lymphadenopathy Respiratory exam: Present: normal lung sounds bilaterally. Absent: respiratory distress, wheezes, rales, rhonchi, stridor Cardiovascular Exam: Present: regular rate, normal rhythm, normal heart sounds. Absent: systolic murmur, diastolic murmur, rubs, gallop, clicks GI/Abdominal exam: Present: soft, normal bowel sounds. Absent: distended, tenderness, guarding, rebound, rigid Extremities exam: Present: full ROM, tenderness (Positive left fourth and fifth metatarsal tenderness with overlying edema. Negative crepitus, deformity or open wound.), normal capillary refill, other (Negative medial or lateral malleolus tenderness. Negative navicular tenderness). Absent: pedal edema, joint swelling, calf tenderness Back exam: Present: normal inspection Neurological exam: Present: alert, oriented X3, CN II-XII intact Psychiatric exam: Present: normal affect, normal mood Skin exam: Present: warm, dry, intact, normal color. Absent: rash Course Vital Signs 08/05/24 08/05/24 17:31 19:48 Temperature 98.6 F Pulse Rate 100 79 Respiratory 20 18 Rate Blood Pressure 128/73 149/94 O2 Sat by Pulse 95 95 Oximetry Medical Decision Making - Medical Decision Making Was pt. sent in by a medical professional or institution (EVA Berman, ZOO DIRECTOR, urgent care, hospital, or fpc...) When possible be specific @ -No Did you speak to anyone other than the patient for history (EMS, parent, family, police, friend...)? What history was obtained from this source @ -No Did you review nursing and triage notes (agree or disagree)? Why? @ -I reviewed and agree with nursing and triage notes Were old charts reviewed (outside hosp., previous admission, EMS record, old EKG, old radiological studies, urgent care reports/EKG's, fpc records)? Report findings @ -No old charts were reviewed Differential Diagnosis (chest pain, altered mental status, abdominal pain women, abdominal pain men, vaginal bleeding, weakness, fever, dyspnea, syncope, headache, dizziness, GI bleed, back pain, seizure, CVA, palpatations, mental health, musculoskeletal)? @ -Foot fracture, Virgen fracture, Lisfranc fracture, ankle fracture, ankle sprain, foot sprain/contusion. EKG interpreted by me (3pts min.). @ -Not done X-rays interpreted by me (1pt min.). @ -Left foot and ankle x-ray shows no evidence of acute fracture with subcutaneous swelling around ankle noted. CT interpreted by me (1pt min.). @ -None done U/S interpreted by me (1pt. min.). @ -None done What testing was considered but not performed or refused? (CT, X-rays, U/S, labs)? Why? @ -None What meds were considered but not given or refused? Why? @ -None Did you discuss the management of the patient with other professionals (professionals i.e. , PA, ZOO DIRECTOR, lab, RT, psych nurse, nursing home social worker, rn security, teacher, staff readiness officer, rn case management)? Give summary @ -No Was smoking cessation discussed for >3mins.? @ -No Was critical care preformed (if so, how long)? @ -No Were there social determinants of health that impacted care today? How? (Homelessness, low income, unemployed, alcoholism, drug addiction, transportation, low edu. Level, literacy, decrease access to med. care, snf, rehab)? @ -No Was there de-escalation of care discussed even if they declined (Discuss DNR or withdrawal of care, Hospice)? DNR status @ -No What co-morbidities impacted this encounter? (DM, HTN, Smoking, COPD, CAD, Cancer, CVA, ARF, Chemo, Hep., AIDS, mental health diagnosis, sleep apnea, morbid obesity)? @ -None Was patient admitted / discharged? Hospital course, mention meds given and route, prescriptions, significant lab abnormalities, going to OR and other pertinent info. @ -Left foot and ankle x-ray shows no evidence of acute fracture with subcutaneous swelling around ankle noted. Catalino wrap for support ordered for patient. Advised RICE and alternate Tylenol/Motrin every 4 hours for pain. Undiagnosed new problem with uncertain prognosis? @ -No Drug Therapy requiring intensive monitoring for toxicity (Heparin, Nitro, Insulin, Cardizem)? @ -No Were any procedures done? @ -No Diagnosis/symptom? @ -Default Acute, or Chronic, or Acute on Chronic? @ -Acute Uncomplicated (without systemic symptoms) or Complicated (systemic symptoms)? @ -Uncomplicated Side effects of treatment? @ -No Exacerbation, Progression, or Severe Exacerbation? @ -No Poses a threat to life or bodily function? How? (Chest pain, [place], [place], pneumonia, PE, COPD, DKA, ARF, appy, cholecystitis, CVA, Diverticulitis, Homicidal, Suicidal, threat to staff... and all critical care pts) @ -No Disposition Clinical Impression: Left ankle sprain, Contusion of foot Disposition: HOME SELF-CARE Condition: Good Instructions (If sedation given, give patient instructions): Ankle Sprain (ED) Is patient prescribed a controlled substance at d/c from ED?: No Referrals: None,Stated [Primary Care Provider] - 1-2 days Time of Disposition: 19:32
[2024-08-05 17:34] VITALS: TEMP 98.6
--- NOTE | 2024-08-05 18:33 | XR ---
EXAMINATION TYPE: XR ankle limited LT, XR foot limited LT DATE OF EXAM: 08/05/2024 5:50 PM COMPARISON: CLINICAL INDICATION: Female, 34 years old with history of Ankle supination, lateral edema; [facility] TECHNIQUE: XR ankle limited LT, XR foot limited LT; 2 views of the foot and 2 views of the ankle subm itted. FINDINGS: There is no evidence of acute osseous pathology. No evidence of subluxation or dislocation. Kager's fat pad is intact. Mild soft tissue swelling around the ankle. No radiopaque foreign bodies are ident ified. Calcaneal plantar spurring is present. 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 IMPRESSION: 1. No evidence of acute fracture. 2. Subcutaneous swelling around the ankle likely secondary to underlying soft tissue injury. [facility], , 08/05/2024 6:31 PM
[2024-08-05 20:02] VITALS: BP 149/94; PULSE 79; RESP 18
== END 2024-08-05 19:48 | disposition home or self-care (01) ==
LOC: EC 16:47
DX: S93.402A Sprain of unspecified ligament of left ankle, initial encounter (principal); S90.32XA Contusion of left foot, initial encounter; Z88.5 Allergy status to narcotic agent; X50.1XXA Overexertion from prolonged static or awkward postures, initial encounter
CPT/HCPCS: 99283